=== PATIENT | female | born 1940 | race Caucasian/White ===

== ENCOUNTER 2017-11-09 18:05 | Inpatient (IN) | payer MEDICARE ==
[2017-11-09] MEDS ORDERED: Mag-Al Plus 1200 MG/1200 MG/120 MG/30 ML UDCUP ONE (18:26)
[2017-11-09] MEDS ORDERED: Lidocaine Viscous Sol 2% 15 ml UD Cup ONE (18:26)
[2017-11-09 18:50] LABS: #Basophils 0.1 thou/uL (0.0-0.2); #Eosinphils 0.4 thou/uL (0.0-0.7); #Lymphocytes 2.6 thou/uL (1.20-3.40); #Neutrophils 12.1 thou/uL (1.40-6.50); %Basophils 0.7 % (0.0-1.0); %Eosinophils 2.7 % (0.0-10.0); %Lymphocytes 15.8 % (21.0-51.0); %Monocytes 6.1 % (0.0-10.0); %Neutrophils 74.7 % (42.0-75.0); Hemoglobin 14.4 g/dL (12.0-16.0); Mean Corpuscular HGB CONC 34.6 g/dL (32.0-36.0); Mean Corpuscular Volume 89.6 fL (78.0-98.0); Mean Platelet Volume 6.7 fL (7.4-10.4); Platelet Count 271 thou/uL (130-400); RBC Distribution Width 11.3 % (11.5-14.5); Red Blood Cell (RBC) Count 4.64 mill/uL (4.20-5.40); White Blood Cell (WBC) Count 16.2 thou/uL (4.8-10.8)
[2017-11-09 19:08] LABS: ALT (SGPT) 15 U/L (8-55); AST (SGOT) 19 U/L (5-34); Albumin 4.4 g/dL (3.4-4.8); Alkaline Phosphatase 80 U/L (40-150); Anion Gap 12 mmol/L (10-20); BUN (Urea Nitrogen) 19 mg/dL (9.8-20.1); Bilirubin, Total 0.5 mg/dL (0.2-1.2); Calc. Creatinine Clearance 0 mL/min (70-130); Calcium 9.8 mg/dL (7.8-10.44); Carbon Dioxide 24 mmol/L (23-31); Chloride 108 mmol/L (98-107); Estimated GFR-MDRD 65; Globulin 2.7 g/dL (2.4-3.5); Glucose 131 mg/dL (83-110); Potassium 3.9 mmol/L (3.5-5.1); Protein, Total 7.1 g/dL (6.0-8.3); Sodium 140 mmol/L (136-145)
[2017-11-09 19:09] LABS: Troponin I Less than 0.010 ng/mL (< 0.028)
--- NOTE | 2017-11-09 19:22 | RAD ---
RADIOGRAPH CHEST 1 VIEW RADIOGRAPH ABDOMEN 2 VIEWS: 11/09/17 HISTORY: 77-year-old female with generalized abdominal pain, nausea, and emesis. FINDINGS: There are no air space densities or pulmonary edema. The lateral costophrenic angles are sharp. There is no cardiomegaly. There is no evidence of pneumothorax or pneumoperitoneum. There is no evidence of dilated small bowel loops, differential air/fluid levels, or organomegaly. IMPRESSION: 1) No acute cardiopulmonary findings. 2) No evidence of bowel obstruction. jn [] POS: JONATHAN
[2017-11-09] MEDS ORDERED: Morphine 4 MG/ML VIAL ONE ×2 (19:57→21:19)
[2017-11-09] MEDS ORDERED: Ondansetron HCl/PF 4 MG/2 ML Vial ONE (20:11)
[2017-11-09 20:18] LABS: Lipase 49412 U/L (8-78)
[2017-11-09] MEDS ORDERED: Morphine 4 MG/ML VIAL SLOW IVP PRN (22:44)
[2017-11-09] MEDS ORDERED: Lactated Ringer's 1,000 ML IV SCH (22:45)
[2017-11-09] MEDS ORDERED: Ondansetron ODT 4 MG TAB PO PRN (22:53)
[2017-11-09] MEDS ORDERED: Morphine 2 MG/ML SYRINGE SLOW IVP PRN (22:53)
[2017-11-09] MEDS: Lactated Ringer's 1,000 ML IV SCH (23:07)
[2017-11-09] MEDS: Ondansetron HCl/PF 4 MG/2 ML Vial IVP PRN (23:07)
[2017-11-09 23:46] VITALS: BMI 22.0
[2017-11-09] MEDS ORDERED: Acetaminophen 325 MG TAB PO PRN (23:49)
[2017-11-10] MEDS: Lactated Ringer's 1,000 ML IV SCH ×5 (04:21→23:36)
[2017-11-10 05:26] LABS: #Basophils 0.1 thou/uL (0.0-0.2); #Eosinphils 0.2 thou/uL (0.0-0.7); #Lymphocytes 2.4 thou/uL (1.20-3.40); #Monocytes 0.8 thou/uL (0.11-0.59); #Neutrophils 6.7 thou/uL (1.40-6.50); %Basophils 0.6 % (0.0-1.0); %Eosinophils 1.5 % (0.0-10.0); %Lymphocytes 23.4 % (21.0-51.0); %Monocytes 7.5 % (0.0-10.0); Anion Gap 10 mmol/L (10-20); BUN (Urea Nitrogen) 21 mg/dL (9.8-20.1); Calc. Creatinine Clearance 63 mL/min (70-130); Calcium 9.2 mg/dL (7.8-10.44); Carbon Dioxide 26 mmol/L (23-31); Chloride 108 mmol/L (98-107); Estimated GFR-MDRD 71; Glucose 109 mg/dL (83-110); Hemoglobin 12.9 g/dL (12.0-16.0); Mean Corpuscular HGB CONC 33.2 g/dL (32.0-36.0); Mean Corpuscular Hemoglobin 31.5 pg (27.0-31.0); Mean Corpuscular Volume 94.7 fL (78.0-98.0); Mean Platelet Volume 6.6 fL (7.4-10.4); Platelet Count 266 thou/uL (130-400); Potassium 4.5 mmol/L (3.5-5.1); Red Blood Cell (RBC) Count 4.11 mill/uL (4.20-5.40); Sodium 139 mmol/L (136-145)
--- NOTE | 2017-11-10 08:22 | HP ---
PRIMARY CARE PHYSICIAN: Chnete Ying CODE STATUS: FULL CODE. TIME OF EVALUATION: 2299. CHIEF COMPLAINT: Abdominal pain. HISTORY OF PRESENT ILLNESS: This is a 77-year-old female patient with past medical history of pancre atitis, also had a history of GERD, hypertension, who came to the hospital after having severe abdomi nal pain that was in the middle of her abdomen, occasionally radiating to the back, only relieved wit h opiate medications. She reported that she got the same symptoms when she had the previous episode of pancreatitis associated with nausea. Symptoms are severe. REVIEW OF SYSTEMS: Constitutional: No fever or chills, generalized weakness. Respiratory: No coug h, sputum production, shortness of breath. Cardiovascular: No chest pain, palpitation. Gastrointes tinal: Nausea, severe abdominal pain. No diarrhea. Central Nervous System: No dizziness, headache or feeling lightheaded. Genitourinary: No burning with urination. Extremities: No leg swelling. PAST MEDICAL HISTORY: As mentioned in the HPI. PAST SURGICAL HISTORY: Cholecystectomy, orthopedic surgery, arthroscopic surgery of left knee, tonsi llectomy. PSYCHIATRIC HISTORY: No previous psychiatric history. SOCIAL HISTORY: No alcohol, no drugs. The patient is a former cigarette smoker. KNOWN ALLERGIES: AUGMENTIN, BACTRIM. REPORTED MEDICATIONS: Ranitidine, aspirin, calcium, losartan, Multaq, vitamin B12. PHYSICAL EXAMINATION: VITAL SIGNS: On presentation, blood pressure 164/82, with heart rate 67, respiratory rate was 20, te mperature 97.7, pain 3-4/10 during examination, oxygen saturation 94% on room air. GENERAL APPEARANCE: Patient is alert and oriented, in no acute distress. HEENT: Eye, normal conjunctivae. Moist oral mucosa. Anicteric. NECK: No JVD. RESPIRATORY: Bilateral air entry. No rales, no wheezes. Symmetrical expansion. CARDIOVASCULAR: Normal rate, regular rhythm. No murmurs, no gallop. No edema. ABDOMEN: Soft, tender. MUSCULOSKELETAL: Baseline range of motion and strength, no tenderness. SKIN: Warm and intact. No pallor, no rash or redness. Peripheral pulses are present. Capillary re fill seems to be intact. NEUROLOGIC: Baseline sensory. No evidence of any new focal weakness. Baseline speech. Cranial ner ves seems to be intact. PSYCHIATRIC: The patient is in a good mood. No anxiety, oriented. Optimal judgment. IMAGING: EKG was reviewed. The patient has normal sinus rhythm. ST segments normal, nonspecific T- wave abnormalities. abdominal x-ray without acute abnormalities. LABORATORY DATA: Reviewed. White count 16.2 on presentation after initial treatment, hemoglob in 14.4, MCV 89, platelet count 271. Sodium 140, potassium 3.9, chloride 108, carbon dioxide 24, ani on gap 12, BUN 19, creatinine 0.8, GFR 65, glucose 131, calcium 9.8, total bilirubin 0.5, AST 19, ALT 15, alkaline phosphatase 280. Troponin is negative. Serum total protein 7.1, albumin 4.4, globulin 2.7. Albumin globulin ration is 1.6. Triglyceride 92 and lipase 49,000. ASSESSMENT AND PLAN: The patient was placed in the hospital for the following medical problems. 1. Acute pancreatitis. The patient has a lipase 49,000. She reported severe abdominal pain, hydr ated, opioid medications for optimal control, for now n.p.o., might be able to start clear liquids in the next 24-48 hours. 2. Severe abdominal pain needing opioids medications for optimal control, this places the patient at high risk of complications from treatment. 3. Deep venous thrombosis prophylaxis. 4. History of atrial fibrillation, rate is controlled.
[2017-11-10] MEDS: Famotidine 20 MG TAB PO SCH ×2 (08:31→20:09)
[2017-11-10] MEDS: Dronedarone HCl 400 MG TAB PO SCH ×2 (08:31→18:21)
[2017-11-10] MEDS: Folic Acid/Vit B Comp W-C PO SCH (08:31)
[2017-11-10] MEDS: Enoxaparin Sodium 40 MG/0.4 ML SYRINGE SC SCH (08:32)
[2017-11-10] MEDS: Calcium Carbonate + Vit D 1 TAB PO SCH ×2 (08:32→20:08)
[2017-11-10] MEDS: Losartan 25 MG TAB PO SCH (08:33)
[2017-11-10] MEDS: Ondansetron HCl/PF 4 MG/2 ML Vial IVP PRN ×2 (08:34→18:18)
[2017-11-10 08:43] LABS: Cardiac Risk 2.4 (Less than 4.5)
[2017-11-10] MEDS ORDERED: ISOVUE-370 76%-LOCM 1 ML ONE (10:44)
--- NOTE | 2017-11-10 11:21 | PDOC.PN ---
- Subjective Encounter Start Date: 11/10/17 Encounter Start Time: 11:19 Subjective: feels much better.abd pain resolving -: No N/V/D.no fever - Objective Resuscitation Status: Resuscitation Status FULL:Full Resuscitation MAR Reviewed: Yes Vital Signs & Weight: Vital Signs (12 hours) Temp Pulse Resp BP Pulse Ox 11/10/17 08:00 97.7 F 65 16 119/69 92 L 11/10/17 04:30 97.9 F 61 16 107/65 94 L 11/10/17 00:52 97.7 F 59 L 16 104/63 94 L Weight Weight 145 lb Result Diagrams: 11/10/17 04:16 11/10/17 04:16 Additional Labs: Laboratory Tests 11/09/17 11/10/17 18:43 04:16 Lipase 02871 H 5297 H Radiology Reviewed by me: Yes (CT A/P- pancreatitis w/o necrosis/abscess) Phys Exam - Physical Examination Constitutional: NAD HEENT: PERRLA, moist MMs, sclera anicteric, oral pharynx no lesions Neck: no nodes, no JVD, supple, full ROM Respiratory: no wheezing, no rales, no rhonchi, clear to auscultation bilateral Cardiovascular: RRR, no significant murmur Gastrointestinal: soft, no distention, positive bowel sounds Mild TTP epigastrium and upper abdomen Musculoskeletal: no edema, pulses present Neurological: non-focal, normal sensation, moves all 4 limbs Psychiatric: normal affect, A&O x 3 Skin: no rash, normal turgor, cap refill <2 seconds Dx/Plan (1) Acute pancreatitis Code(s): K85.90 - ACUTE PANCREATITIS WITHOUT NECROSIS OR INFECTION, UNSP Status: Acute Qualifiers: Pancreatitis type: biliary Comment: Elle retained CBD stone (2) Atrial fibrillation Code(s): I48.91 - UNSPECIFIED ATRIAL FIBRILLATION Status: Chronic Qualifiers: Atrial fibrillation type: paroxysmal Qualified Code(s): I48.0 - Paroxysmal atrial fibrillation Comment: Stable on Multaq.NSR (3) GERD (gastroesophageal reflux disease) Code(s): K21.9 - GASTRO-ESOPHAGEAL REFLUX DISEASE WITHOUT ESOPHAGITIS Status: Chronic Qualifiers: Esophagitis presence: esophagitis presence not specified Qualified Code(s) : K21.9 - Gastro-esophageal reflux disease without esophagitis - Plan plan discussed w/ family, out of bed/ambulate, DVT proph w/SCDs Cont IVF.NPO. clinically improved.; -: lipase trending down -: may need ERCP/MRCP-defer to GI -: Lipids checked and WNL. -: Clonoscopy last year and was NL except small polyp * . Review of Systems - Review of Systems Constitutional: negative: fever, chills, sweats, weakness, malaise, other ENT: negative: Ear Pain, Ear Discharge, Nose Pain, Nose Discharge, Nose Congestion, Mouth Pain, Mouth Swelling, Throat Pain, Throat Swelling, Other Respiratory: negative: Cough, Dry, Shortness of Breath, Hemoptysis, SOB with Excertion, Pleuritic Pain, Sputum, Wheezing Cardiovascular: negative: chest pain, palpitations, orthopnea, paroxysmal nocturnal dyspnea, edema, light headedness, other Gastrointestinal: Abdominal Pain. negative: Nausea, Vomiting, Diarrhea, Constipation, Melena, Hematochezia, Other Genitourinary: negative: Dysuria, Frequency, Incontinence, Hematuria, Retention , Other Musculoskeletal: negative: Neck Pain, Shoulder Pain, Arm Pain, Back Pain, Hand Pain, Leg Pain, Foot Pain, Other Skin: negative: Rash, Lesions, Celestino, Bruising, Other Neurological: negative: Weakness, Numbness, Incoordination, Change in Speech, Confusion, Seizures, Other - Medications/Allergies Allergies/Adverse Reactions: Allergies Allergy/AdvReac Type Severity Reaction Status Date / Time amoxicillin trihydrate Allergy Verified 11/09/17 23:25 [From Augmentin] potassium clavulanate Allergy Verified 11/09/17 23:25 [From Augmentin] sulfamethoxazole Allergy Verified 11/09/17 23:25 [From Bactrim] trimethoprim [From Bactrim] Allergy Verified 11/09/17 23:25 Medications: Current Medications Acetaminophen (Tylenol) 650 mg PO Q4H PRN PRN Reason: Headache/Fever or Pain Aspirin (Aspirin Chewable) 81 mg PO DAILY [facility] Last Admin: 11/10/17 08:31 Dose: 81 mg Calcium/Vitamin D (Caltrate 600 + Vit D) 1 tab PO BID [facility] Last Admin: 11/10/17 08:32 Dose: 1 tab Dronedarone (Multaq) 400 mg PO BID-[facility] Last Admin: 11/10/17 08:31 Dose: 400 mg Enoxaparin Sodium (Lovenox) 40 mg SC 0900 [facility] Last Admin: 11/10/17 08:32 Dose: 40 mg Famotidine (Pepcid) 40 mg PO BID [facility] Last Admin: 11/10/17 08:31 Dose: 40 mg Lactated Ringer's (Lactated Ringer's) 1,000 mls @ 200 mls/hr IV .Q5H [facility] Last Admin: 11/10/17 08:39 Dose: 1,000 mls Losartan Potassium (Cozaar) 50 mg PO DAILY [facility] Last Admin: 11/10/17 08:33 Dose: 50 mg Morphine Sulfate (Morphine) 2 mg SLOW IVP Q4H PRN PRN Reason: Pain Ondansetron HCl (Zofran) 4 mg IVP Q4H PRN PRN Reason: Nausea/Vomiting Last Admin: 11/10/17 08:34 Dose: 4 mg Ondansetron HCl (Zofran Odt) 4 mg PO Q4H PRN PRN Reason: Nausea/Vomiting Vitamin B Complex/Vit C/Folic Acid (Nephro-Katt Tablet) 1 tab PO DAILY [facility] Last Admin: 11/10/17 08:31 Dose: 1 tab
--- NOTE | 2017-11-10 11:23 | CT ---
PRE AND POST CONTRAST CT OF THE ABDOMEN AND PELVIS: History: Pancreatitis. Epigastric pain. Vomiting. Elevated enzymes. Technique: Pre and post contrast enhanced images of the abdomen and pelvis obtained. FINDINGS: Small bilateral pleural effusions seen. Some areas of atelectasis seen in the left lower lobe of the lung. Mitral anular calcifications seen. The liver and spleen are unremarkable. The gallbladder has been surgically removed. The pancreas shows no evidence of significant necrosis or pseudocyst. There is extensive fat strandin g surrounding the retroperitoneum enveloping the pancreas. Fluid is seen along the ascending colon as well as the left pericolic gutter. Fluid is also seen enveloping the retroperitoneal portion of the duodenum. No evidence of intrahepatic biliary dilatation is seen. The small bowel is unremarkable. A moderate amount of stool is seen in the ascending and transverse c olon. No evidence of intraabdominal abscess seen. Multilevel lumbar facet degenerative changes seen. IMPRESSION: Retroperitoneal fluid compatible with the patient's history of pancreatitis. No evidence of pancreati c pseudocyst or definite significant evidence of pancreatic necrosis or abscess seen. POS: JONATHAN
[2017-11-10 11:43] LABS: Cardiac Risk 2.3 (Less than 4.5)
--- NOTE | 2017-11-10 17:23 | CON ---
DATE OF CONSULTATION: 11/10/2017 GI CONSULT REASON FOR CONSULTATION: Pancreatitis. HISTORY OF PRESENT ILLNESS: Ms. Arredondo is a pleasant 77-year-old female, who came in with severe abdominal pain and had elevated lipase consistent with pancreatitis. She reports that she had one b out like this about a year and a half ago that was attributed to gallstones. That was at this hospit al and she had a cholecystectomy that was in 04/2016. At that time, she had a normal CAT scan of the abdomen and pelvis. She had gallstones on ultrasound. She had a laparoscopic cholecystectomy with IOC, which was negative. Interestingly, she had completely normal liver function test during that feli ut of pancreatitis. She states she had no problems in the interim. About a week ago, she was on Cip ro for UTI. She has taken that medicine in the past without problems. She was off it for about 3-4 days. When yesterday after going out to eat with her daughter, she had development of severe abdomin al pain. She came to the emergency room about 8:00 last night and she was concerned that the pain wa s very similar to her pancreatitis like pain, and sure enough, she was diagnosed with pancreatitis ag ain. She denies any alcohol use. In fact, she does not drink. She used to drink wine sometime with one of her neighbors, but that neighbor moved away that was not even a regular daily event. She kenya es no supplements or herbs, and was on a probiotic, which she took while she had her UTI. She denies heavy NSAID use. Presently, she was given 1 liter of IV fluids and then started on 100 mL an hour o f IV fluids in the emergency room, and then on the floor, she was placed on 200 an hour, which she re martha on. She notes she is urinating well. Her pain is gone. She pain medication since 4:00 a.m. She reports she had a CAT scan this morning, and presently, she has no nausea or vomiting. She has no appetite. She feels a little sore, but feels much better overall. PAST MEDICAL HISTORY: 1. Pancreatitis, last year. 2. Prior history of colon polyps with previous colonoscopies, last earlier this year. PAST SURGICAL HISTORY: Cholecystectomy with IOC was negative, orthopedic surgery, arthroscopic surge ry left knee, tonsillectomy, EGD and colonoscopy in the past. PSYCHIATRIC HISTORY: None. SOCIAL HISTORY: Does not smoke, drink, or use drugs. The patient used to smoke . ALLERGIES: Include AUGMENTIN AND BACTRIM. MEDICATIONS: At home, aspirin, calcium, losartan, Multaq, vitamin B12, and ranitidine. Presently, s he is on Tylenol, aspirin, calcium, Multaq, Lovenox, Pepcid, LR at 200 an hour, Cozaar, morphine p.r. n., Zofran p.r.n. PHYSICAL EXAMINATION: GENERAL: She is resting comfortably in bed. VITAL SIGNS: Pulse is 65, temperature 97, O2 sat 91-%94%, respirations 18, blood pressure 119/70. LUNGS: Clear, slight crackles in the left base, but no shortness of breath or wheezing. HEART: Regular rate and rhythm. ABDOMEN: Soft, nontender. There is no rebound or guarding. EXTREMITIES: No clubbing, cyanosis, or edema. LABORATORY STUDIES: White count is 10, it was 16 yesterday; hemoglobin 12.9, down from 14.4; platele t count is 266. Sodium 139, potassium 4.5, chloride 108, bicarb 26, BUN 21, creatinine is 0.79. On the , when she came in, her AST and ALT were 19 and 15, alkaline phosphatase was 80, bilirubin wa s 0.5. Triglycerides were 46, but 82 when she came in. Troponins were negative. Lipase was 49,412, now 5297. CAT scan of the abdomen and pelvis performed today with and without contrast, small bilat eral pleural effusions, mitral annular calcifications. Liver and spleen normal. Fat stranding in th e retroperitoneum involving the pancreas with some fluid along the ascending colon with left pericoli c gutter, this was also seen in the retroperitoneal portion of the duodenum. No intrahepatic ductal dilatation, moderate amount of stool. ASSESSMENT: This is a 77-year-old who has had a bout of pancreatitis, seems to be improving at this time. She has inflammatory changes around the pancreas with no evidence of pancreatic necrosis, etio logy of this is unclear. She had pancreatitis in 2017 and had a cholecystectomy at that time, althou gh interestingly her liver function tests were normal then as well. Typically, biliary pancreatitis will be associated with some type of AST, ALT, and alkaline phosphatase elevation, which she did not have last time nor this time. She is improving rapidly this admission. Differential diagnosis would include gallstone pancreatitis, which is a little bit less likely for the reasons noted above. Auto immune pancreatitis to be a consideration, but less likely. Pancreatitis due to some type of ampulla ry lesion would be a concern or drug-induced would be a possible cause. On my review of her CAT scan , I think she has got a dilated pancreatic duct and she is probably going to need an endoscopic ultra sound in the outpatient setting. RECOMMENDATIONS: Continue IV fluids 200 an hour. If she starts showing any signs of pulmonary edema , then I can back off to 150 or 100. We would repeat labs tomorrow and keep her n.p.o. Again, she i s needing some further outpatient evaluation for pancreas. We will follow along with you.
[2017-11-11] MEDS: Lactated Ringer's 1,000 ML IV SCH ×4 (04:37→22:06)
[2017-11-11 06:10] LABS: ALT (SGPT) 12 U/L (8-55); AST (SGOT) 18 U/L (5-34); Albumin 3.3 g/dL (3.4-4.8); Alkaline Phosphatase 57 U/L (40-150); Anion Gap 10 mmol/L (10-20); BUN (Urea Nitrogen) 9 mg/dL (9.8-20.1); Bilirubin, Total 1.3 mg/dL (0.2-1.2); Calc. Creatinine Clearance 69 mL/min (70-130); Calcium 8.8 mg/dL (7.8-10.44); Carbon Dioxide 25 mmol/L (23-31); Chloride 106 mmol/L (98-107); Estimated GFR-MDRD 79; Globulin 1.9 g/dL (2.4-3.5); Glucose 79 mg/dL (83-110); Lipase 637 U/L (8-78); Protein, Total 5.2 g/dL (6.0-8.3); Sodium 137 mmol/L (136-145)
[2017-11-11] MEDS: Dronedarone HCl 400 MG TAB PO SCH ×2 (08:24→16:36)
[2017-11-11] MEDS: Folic Acid/Vit B Comp W-C PO SCH (08:24)
[2017-11-11] MEDS: Calcium Carbonate + Vit D 1 TAB PO SCH ×2 (08:28→20:50)
[2017-11-11] MEDS: Losartan 25 MG TAB PO SCH (08:28)
[2017-11-11] MEDS: Famotidine 20 MG TAB PO SCH ×2 (08:28→20:50)
[2017-11-11] MEDS: Enoxaparin Sodium 40 MG/0.4 ML SYRINGE SC SCH (08:28)
[2017-11-11] MEDS: Ondansetron HCl/PF 4 MG/2 ML Vial IVP PRN (08:29)
[2017-11-11] MEDS ORDERED: Lactated Ringer's 1,000 ML IV SCH (09:06)
--- NOTE | 2017-11-11 12:47 | PDOC.PN ---
- Subjective Encounter Start Date: 11/11/17 Encounter Start Time: 12:45 Subjective: feels much better.abd pain improved -: no nausea/vomiting - Objective Resuscitation Status: Resuscitation Status FULL:Full Resuscitation MAR Reviewed: Yes Vital Signs & Weight: Vital Signs (12 hours) Temp Pulse Resp BP Pulse Ox 11/11/17 12:05 98.1 F 66 16 118/69 96 11/11/17 08:00 96 Weight Weight 145 lb I&O: 11/10/17 11/11/17 11/12/17 06:59 06:59 06:59 Intake Total 2600 Balance 2600 Result Diagrams: 11/10/17 04:16 11/11/17 04:16 Additional Labs: Laboratory Tests 11/09/17 11/10/17 11/11/17 18:43 04:16 04:16 Total Bilirubin 0.5 1.3 H Lipase 68246 H 5297 H 637 H Phys Exam - Physical Examination Constitutional: NAD HEENT: PERRLA, moist MMs, sclera anicteric, oral pharynx no lesions Neck: no nodes, no JVD, supple, full ROM Respiratory: no wheezing, no rales, no rhonchi, clear to auscultation bilateral Cardiovascular: RRR, no significant murmur, no rub Gastrointestinal: soft, non-tender, no distention, positive bowel sounds Musculoskeletal: no edema, pulses present Neurological: non-focal, normal sensation, moves all 4 limbs Psychiatric: normal affect, A&O x 3 Skin: no rash Dx/Plan (1) Acute pancreatitis Code(s): K85.90 - ACUTE PANCREATITIS WITHOUT NECROSIS OR INFECTION, UNSP Status: Acute Qualifiers: Pancreatitis type: biliary Comment: Likley retained CBD stone Vs [employer] .Lipid panel WNL. (2) Atrial fibrillation Code(s): I48.91 - UNSPECIFIED ATRIAL FIBRILLATION Status: Chronic Qualifiers: Atrial fibrillation type: paroxysmal Qualified Code(s): I48.0 - Paroxysmal atrial fibrillation Comment: Stable on Multaq.NSR (3) GERD (gastroesophageal reflux disease) Code(s): K21.9 - GASTRO-ESOPHAGEAL REFLUX DISEASE WITHOUT ESOPHAGITIS Status: Chronic Qualifiers: Esophagitis presence: esophagitis presence not specified Qualified Code(s) : K21.9 - Gastro-esophageal reflux disease without esophagitis - Plan DVT proph w/SCDs clinically better.IgG4 levels sent -: rediuce IVF. start CLD -: MRCP today.based on results,may need ERCP/EUS -: Lipase much improved. -: hemodynamically stable * . Review of Systems - Review of Systems Constitutional: negative: fever, chills, sweats, weakness, malaise, other ENT: negative: Ear Pain, Ear Discharge, Nose Pain, Nose Discharge, Nose Congestion, Mouth Pain, Mouth Swelling, Throat Pain, Throat Swelling, Other Respiratory: negative: Cough, Dry, Shortness of Breath, Hemoptysis, SOB with Excertion, Pleuritic Pain, Sputum, Wheezing Cardiovascular: negative: chest pain, palpitations, orthopnea, paroxysmal nocturnal dyspnea, edema, light headedness, other Gastrointestinal: negative: Nausea, Vomiting, Abdominal Pain, Diarrhea, Constipation, Melena, Hematochezia, Other Genitourinary: negative: Dysuria, Frequency, Incontinence, Hematuria, Retention , Other Musculoskeletal: negative: Neck Pain, Shoulder Pain, Arm Pain, Back Pain, Hand Pain, Leg Pain, Foot Pain, Other Skin: negative: Rash, Lesions, Celestino, Bruising, Other Neurological: negative: Weakness, Numbness, Incoordination, Change in Speech, Confusion, Seizures, Other - Medications/Allergies Allergies/Adverse Reactions: Allergies Allergy/AdvReac Type Severity Reaction Status Date / Time amoxicillin trihydrate Allergy Verified 11/09/17 23:25 [From Augmentin] potassium clavulanate Allergy Verified 11/09/17 23:25 [From Augmentin] sulfamethoxazole Allergy Verified 11/09/17 23:25 [From Bactrim] trimethoprim [From Bactrim] Allergy Verified 11/09/17 23:25 Medications: Current Medications Acetaminophen (Tylenol) 650 mg PO Q4H PRN PRN Reason: Headache/Fever or Pain Aspirin (Aspirin Chewable) 81 mg PO DAILY [facility] Last Admin: 11/11/17 08:28 Dose: 81 mg Calcium/Vitamin D (Caltrate 600 + Vit D) 1 tab PO BID [facility] Last Admin: 11/11/17 08:28 Dose: 1 tab Dronedarone (Multaq) 400 mg PO BID-[facility] Last Admin: 11/11/17 08:24 Dose: 400 mg Enoxaparin Sodium (Lovenox) 40 mg SC 899 [facility] Last Admin: 11/11/17 08:28 Dose: 40 mg Famotidine (Pepcid) 40 mg PO BID [facility] Last Admin: 11/11/17 08:28 Dose: 40 mg Lactated Ringer's (Lactated Ringer's) 1,000 mls @ 100 mls/hr IV .Q10H [facility] Losartan Potassium (Cozaar) 50 mg PO DAILY [facility] Last Admin: 11/11/17 08:28 Dose: 50 mg Morphine Sulfate (Morphine) 2 mg SLOW IVP Q4H PRN PRN Reason: Pain Ondansetron HCl (Zofran) 4 mg IVP Q4H PRN PRN Reason: Nausea/Vomiting Last Admin: 11/11/17 08:29 Dose: 4 mg Ondansetron HCl (Zofran Odt) 4 mg PO Q4H PRN PRN Reason: Nausea/Vomiting Sodium Chloride (Flush - Normal Saline) 10 ml IVF Q12HR [facility] Sodium Chloride (Flush - Normal Saline) 10 ml IVF PRN PRN PRN Reason: Saline Flush Vitamin B Complex/Vit C/Folic Acid (Nephro-Katt Tablet) 1 tab PO DAILY [facility] Last Admin: 11/11/17 08:24 Dose: 1 tab
--- NOTE | 2017-11-11 15:11 | PRG ---
DATE OF SERVICE: 11/11/2017 SUBJECTIVE: Ms. Arredondo feels much better. She states her lower abdomen still sore. She is void ing well. She is little bit hungry. She is tolerating sips of liquids with medicines and she inform s me that Dr. Bronson told her she can start on liquids now. She has no pain or nausea. MEDICATIONS: Multaq, Caltrate, Tylenol, Lovenox, lactated ringers at 200 has been dropped to 150, Co zaar, morphine, Zofran p.r.n., B complex. PHYSICAL EXAMINATION: VITAL SIGNS: Temperature is 97, pulse 71, blood pressure 110/64. LUNGS: Clear. HEART: Regular rate and rhythm without clicks, rubs or murmurs. ABDOMEN: Soft, nontender. There is no rebound or guarding. LABORATORY STUDIES: Sodium is 137, potassium 4, BUN and creatinine are 9 and 0.7, glucose 79, total bilirubin is 1.3, AST and ALT are 18 and 12, alkaline phosphatase 57. Protein 5.2, albumin 3.3, glob ulin 1.9, lipase is down from 5000 yesterday to 637 today. ASSESSMENT: Resolving pancreatitis, etiology is unclear. The way it came on abruptly and got better abruptly is very of biliary pancreatitis; however, her LFTs were normal. Interestingly, her L FTs are normal at the time of her previous episode of pancreatitis about a year and a half ago when s he had a laparoscopic cholecystectomy. With a bilirubin slightly elevated today, I think more valid. The differential diagnosis include a medication reaction, obviously some type of ampullary or pancreatic abnormality. The CAT scan just showed pancreatitis with no overt masses or lesions. RECOMMENDATIONS: 1. Advance to a clear liquid diet. If she tolerates that, she can go to full later today. 2. Repeat labs tomorrow. 3. MRCP tomorrow. 4. Decrease IV fluid to 100 mL an hour.
[2017-11-12] MEDS: Lactated Ringer's 1,000 ML IV SCH ×3 (02:41→20:02)
[2017-11-12 05:27] LABS: ALT (SGPT) 11 U/L (8-55); AST (SGOT) 19 U/L (5-34); Albumin 3.3 g/dL (3.4-4.8); Alkaline Phosphatase 56 U/L (40-150); Anion Gap 10 mmol/L (10-20); BUN (Urea Nitrogen) 7 mg/dL (9.8-20.1); Bilirubin, Total 1.1 mg/dL (0.2-1.2); Calc. Creatinine Clearance 65 mL/min (70-130); Calcium 9.1 mg/dL (7.8-10.44); Carbon Dioxide 26 mmol/L (23-31); Chloride 106 mmol/L (98-107); Estimated GFR-MDRD 74; Glucose 80 mg/dL (83-110); Lipase 102 U/L (8-78); Potassium 3.8 mmol/L (3.5-5.1); Protein, Total 5.3 g/dL (6.0-8.3); Sodium 138 mmol/L (136-145)
[2017-11-12] MEDS: Dronedarone HCl 400 MG TAB PO SCH ×2 (08:58→17:34)
[2017-11-12] MEDS: Losartan 25 MG TAB PO SCH (08:59)
[2017-11-12] MEDS: Famotidine 20 MG TAB PO SCH ×2 (08:59→20:01)
[2017-11-12] MEDS: Calcium Carbonate + Vit D 1 TAB PO SCH ×2 (08:59→20:01)
[2017-11-12] MEDS: Folic Acid/Vit B Comp W-C PO SCH (08:59)
[2017-11-12] MEDS: Enoxaparin Sodium 40 MG/0.4 ML SYRINGE SC SCH (09:02)
--- NOTE | 2017-11-12 10:35 | MRI ---
MRI OF THE ABDOMEN WITHOUT IV CONTRAST: INDICATION: History of pancreatitis, epigastric abdominal pain, and elevated enzymes. COMPARISON: CT of the abdomen and pelvis dated 11/10/17. TECHNIQUE: Multiplanar, multisequence MR images were obtained of the abdomen utilizing an MRP protocol. FINDINGS: There is some dilatation of the common bile duct measuring up to 1.4 cm, likely related to patient's post cholecystectomy state. There is mild intrahepatic ductal dilatation. There is mild peripancreatic edema consistent with the patient's history of pancreatitis. No definit e drainable fluid collection is evident. No definite intraluminal filling defect is grossly evident within the common bile duct. There are small bilateral pleural effusions and suspected bibasilar atelectasis. There is mild thoracolumbar scoliosis. There is a small cyst within the right mid kidney. IMPRESSION: 1. Findings most consistent with acute noncomplicated pancreatitis. 2. No definite intraluminal focal filling defect evident within the common bile duct. 3. Dilatation of the common bile duct and mild intrahepatic biliary ductal dilatation is likely rela christina to the patient's post-cholecystectomy state. 4. Small right renal cyst. 5. Bilateral pleural effusions and suspected bibasilar atelectasis. POS: [facility]
--- NOTE | 2017-11-12 13:20 | PDOC.PN ---
- Subjective Encounter Start Date: 11/12/17 Encounter Start Time: 13:20 Subjective: feels better.no more abd pain.able to eat full liquids w/o nausea/ vomiting - Objective Resuscitation Status: Resuscitation Status FULL:Full Resuscitation MAR Reviewed: Yes Vital Signs & Weight: Vital Signs (12 hours) Temp Pulse Resp BP Pulse Ox 11/12/17 11:14 98.1 F 71 18 143/81 H 92 L 11/12/17 07:05 98.1 F 72 17 142/80 H 92 L Weight Weight 145 lb I&O: 11/11/17 11/12/17 11/13/17 06:59 06:59 06:59 Intake Total 2600 Balance 2600 Result Diagrams: 11/10/17 04:16 11/12/17 04:07 Additional Labs: Laboratory Tests 11/09/17 11/10/17 11/11/17 18:43 04:16 04:16 Lipase 17188 H 5297 H 637 H 11/12/17 04:07 Lipase 102 H Radiology Reviewed by me: Yes (MRI-Uncomplicated pancreatitis) Phys Exam - Physical Examination Constitutional: NAD HEENT: PERRLA, moist MMs, sclera anicteric, oral pharynx no lesions Neck: no nodes, no JVD, supple, full ROM Respiratory: no wheezing, no rales, no rhonchi, clear to auscultation bilateral Cardiovascular: RRR, no significant murmur, no rub Gastrointestinal: soft, non-tender, no distention, positive bowel sounds Musculoskeletal: no edema, pulses present Neurological: non-focal, normal sensation, moves all 4 limbs Psychiatric: normal affect, A&O x 3 Skin: no rash Dx/Plan (1) Acute pancreatitis Code(s): K85.90 - ACUTE PANCREATITIS WITHOUT NECROSIS OR INFECTION, UNSP Status: Acute Qualifiers: Pancreatitis type: biliary Comment: Likley retained CBD stone Vs Autoimmune .Lipid panel WNL. (2) Atrial fibrillation Code(s): I48.91 - UNSPECIFIED ATRIAL FIBRILLATION Status: Chronic Qualifiers: Atrial fibrillation type: paroxysmal Qualified Code(s): I48.0 - Paroxysmal atrial fibrillation Comment: Stable on Multaq.NSR (3) GERD (gastroesophageal reflux disease) Code(s): K21.9 - GASTRO-ESOPHAGEAL REFLUX DISEASE WITHOUT ESOPHAGITIS Status: Chronic Qualifiers: Esophagitis presence: esophagitis presence not specified Qualified Code(s) : K21.9 - Gastro-esophageal reflux disease without esophagitis - Plan DVT proph w/SCDs cont full liquid. no masses/obstruction on MRI -: likley able to advance diet.will defer to GI -: lipase almost back down to normal * . Review of Systems - Review of Systems Constitutional: negative: fever, chills, sweats, weakness, malaise, other ENT: negative: Ear Pain, Ear Discharge, Nose Pain, Nose Discharge, Nose Congestion, Mouth Pain, Mouth Swelling, Throat Pain, Throat Swelling, Other Respiratory: negative: Cough, Dry, Shortness of Breath, Hemoptysis, SOB with Excertion, Pleuritic Pain, Sputum, Wheezing Cardiovascular: negative: chest pain, palpitations, orthopnea, paroxysmal nocturnal dyspnea, edema, light headedness, other Gastrointestinal: negative: Nausea, Vomiting, Abdominal Pain, Diarrhea, Constipation, Melena, Hematochezia, Other Genitourinary: negative: Dysuria, Frequency, Incontinence, Hematuria, Retention , Other Musculoskeletal: negative: Neck Pain, Shoulder Pain, Arm Pain, Back Pain, Hand Pain, Leg Pain, Foot Pain, Other Neurological: negative: Weakness, Numbness, Incoordination, Change in Speech, Confusion, Seizures, Other - Medications/Allergies Allergies/Adverse Reactions: Allergies Allergy/AdvReac Type Severity Reaction Status Date / Time amoxicillin trihydrate Allergy Verified 11/09/17 23:25 [From Augmentin] potassium clavulanate Allergy Verified 11/09/17 23:25 [From Augmentin] sulfamethoxazole Allergy Verified 11/09/17 23:25 [From Bactrim] trimethoprim [From Bactrim] Allergy Verified 11/09/17 23:25 Medications: Current Medications Acetaminophen (Tylenol) 650 mg PO Q4H PRN PRN Reason: Headache/Fever or Pain Aspirin (Aspirin Chewable) 81 mg PO DAILY [facility] Last Admin: 11/12/17 08:59 Dose: 81 mg Calcium/Vitamin D (Caltrate 600 + Vit D) 1 tab PO BID [facility] Last Admin: 11/12/17 08:59 Dose: 1 tab Dronedarone (Multaq) 400 mg PO BID[facility] Last Admin: 11/12/17 08:58 Dose: 400 mg Enoxaparin Sodium (Lovenox) 40 mg SC 0900 [facility] Last Admin: 11/12/17 09:02 Dose: 40 mg Famotidine (Pepcid) 40 mg PO BID [facility] Last Admin: 11/12/17 08:59 Dose: 40 mg Lactated Ringer's (Lactated Ringer's) 1,000 mls @ 100 mls/hr IV .Q10H [facility] Last Admin: 11/12/17 11:43 Dose: 1,000 mls Losartan Potassium (Cozaar) 50 mg PO DAILY [facility] Last Admin: 11/12/17 08:59 Dose: 50 mg Morphine Sulfate (Morphine) 2 mg SLOW IVP Q4H PRN PRN Reason: Pain Ondansetron HCl (Zofran) 4 mg IVP Q4H PRN PRN Reason: Nausea/Vomiting Last Admin: 11/11/17 08:29 Dose: 4 mg Ondansetron HCl (Zofran Odt) 4 mg PO Q4H PRN PRN Reason: Nausea/Vomiting Sodium Chloride (Flush - Normal Saline) 10 ml IVF Q12HR [facility] Last Admin: 11/12/17 08:59 Dose: 10 ml Sodium Chloride (Flush - Normal Saline) 10 ml IVF PRN PRN PRN Reason: Saline Flush Vitamin B Complex/Vit C/Folic Acid (Nephro-Katt Tablet) 1 tab PO DAILY [facility] Last Admin: 11/12/17 08:59 Dose: 1 tab
--- NOTE | 2017-11-13 00:04 | PRG ---
DATE OF SERVICE: 11/12/2017 SUBJECTIVE: Ms. Arredondo is pain free and tolerating a low-fat diet. OBJECTIVE: VITAL SIGNS: Temperature is 97.8, pulse 67, blood pressure 145/76. GENERAL: She is in no acute distress, alert and oriented x3. LUNGS: Clear to auscultation bilaterally. HEART: Regular rate and rhythm without murmur. ABDOMEN: Soft, nontender, nondistended. Bowel sounds are present. EXTREMITIES: No lower extremity edema. LABORATORY AND DIAGNOSTIC DATA: White blood cell count 10.0, hemoglobin 12.9, platelets 266,000. Li pase is down to 102, albumin 3.3, creatinine 0.76, bilirubin 1.1, AST 19, ALT 11, alkaline phosphatas e 56. She had an MRCP today, which showed no filling defects in the common bile duct. The bile duct was dilated; however, up to 1.4 cm. IMPRESSION: 1. Acute recurrent idiopathic pancreatitis. Given the biliary dilation to 1.4 cm and slightly eleva christina bilirubin on presentation, still gallstone pancreatitis is a possibility. She might have passed a stone and her pancreatitis is now pretty much resolved. 2. Neoplastic process still has to be ruled out in a 77-year-old with acute pancreatitis. No mass w as seen by CT or MRI. RECOMMENDATIONS: 1. She is tolerating a low-fat diet. 2. Follow up with Dr. Brown in GI clinic. Next step will be referral for endoscopic ultrasound. __ ___ evaluate for any choledocholithiasis, not identified by the MRCP and also evaluate for pancreatic head tumor that also could cause pancreatitis. 3. I will sign off. Please call if GI can be of assistance, it is anticipated that she will dischar ge home tomorrow.
[2017-11-13 07:02] VITALS: BP 157/76; TEMP 97.5
[2017-11-13] MEDS: Dronedarone HCl 400 MG TAB PO SCH (08:01)
[2017-11-13] MEDS: Famotidine 20 MG TAB PO SCH (08:01)
[2017-11-13] MEDS: Enoxaparin Sodium 40 MG/0.4 ML SYRINGE SC SCH (08:01)
[2017-11-13] MEDS: Folic Acid/Vit B Comp W-C PO SCH (08:01)
[2017-11-13] MEDS: Losartan 25 MG TAB PO SCH (08:01)
[2017-11-13] MEDS: Calcium Carbonate + Vit D 1 TAB PO SCH (08:01)
[2017-11-13] MEDS: Lactated Ringer's 1,000 ML IV SCH (11:27)
--- NOTE | 2017-11-13 13:37 | DIS ---
DATE OF ADMISSION: 11/09/2017 DATE OF DISCHARGE: 11/13/2017 CONDITION AT THE TIME OF DISCHARGE: Stable and improved. DISCHARGE DISPOSITION: Home. PRIMARY CARE PHYSICIAN: Dr. Valdez PRIMARY SAFETY AND HEALTH CONSULTANT: Dr. Anai Brown DISCHARGE DIAGNOSES: 1. Acute pancreatitis, etiology unclear at this time. 2. Recurrent idiopathic. SECONDARY DISCHARGE DIAGNOSES: 1. History of hypertension, stable. 2. History of atrial fibrillation, normal sinus rhythm on Multaq. 3. Gastroesophageal reflux disease. DISCHARGE MEDICATIONS: Remain the same as admission medication as follows; Multaq 400 mg p.o. b.i.d. , aspirin 81 mg daily, calcium with vitamin D 1 tablet p.o. b.i.d., Pepcid 40 mg p.o. b.i.d., Nephro- Katt 1 tablet daily and Cozaar 50 mg daily. IN-HOUSE CONSULTATIONS: Gastroenterology, Dr. Kaur and Dr. London. PROCEDURES DONE IN THE HOSPITAL: 1. Acute abdominal series on presentation to the ER, which did not show any evidence of bowel obstru ction. 2. CT scan of the abdomen and pelvis on 11/10/2017 which showed acute pancreatitis without evidence of pseudocyst or necrosis or abscess or any masses. No intrahepatic biliary ductal dilatation. 3. MRCP which once again showed findings consistent with acute noncomplicated pancreatitis without d efinitive intraluminal focal filling defect within the common bile duct, dilatation of the CBD and mi ld intrahepatic ductal dilatation was seen which was likely related to post-cholecystectomy state. HOSPITAL COURSE: Ms. Arredondo is a very pleasant 77-year-old female with history of one attack of pancreatitis in the past, GERD and hypertension, who presented to the emergency room with complaints of severe abdominal pain in the middle of her abdomen radiating to back. Upon presentation, she was found to have lipase elevated to almost 50,000. White count was 16.2, anion gap of 12, BUN 19, creat inine 0.8. She was otherwise hemodynamically stable. KUB was done in the ER it was negative. She w as admitted with a presumptive diagnosis of acute pancreatitis and was started on IV fluids and kept n.p.o. and GI was consulted. Please see admission history and physical for further details. HOSPITAL COURSE: A CT scan of the abdomen and pelvis was done to check for any specific causes of th e pancreatitis and to confirm the diagnosis. It did confirm the diagnosis, but the cause was not kno wn. She was seen by Dr. Kaur from Gastroenterology and IgG4 levels were checked to rule out autoim mune pancreatitis and lipid panel was also checked. Both of these were unremarkable. I do have the results of the IgG, but not the IgG4 subtype at this time. The patient did clinically well with IV fluids and n.p.o. status and was slowly advanced with her t and tolerated it very well. Lipase was trended and it went from 40,000 to 69 this morning. She wa s seen and cleared by Gastroenterology for discharge with outpatient followup. She underwent MRCP, w hich did not show any overt tumors or masses, but she would require endoscopic ultrasound to rule out any peripancreatic duct anomalies or any small masses to rule out carcinoma. She will follow up diego h her joint supervisor, Dr. Anai Brown, in the outpatient setting. This morning she was seen and examined and is tolerating a regular low fat diet and has no abdominal pain, nausea or vomiting. PHYSICAL EXAMINATION: VITAL SIGNS: This morning; temperature 97.5, pulse of 67, respirations 20, saturating 94% on room ai r, blood pressure 157/76. GENERAL: In no acute distress. CHEST: Clear to auscultation bilaterally. CARDIOVASCULAR: Rate and rhythm is regular. ABDOMEN: Soft, nontender, nondistended, positive bowel sounds. Discharge plan was discussed with the patient who verbalized understanding. She will also follow up with her primary care physician in 1-2 weeks. Medications were reconciled. Total time spent was 32 minutes.
== END 2017-11-13 13:13 | disposition home or self-care (01) | DRG 440 ==
LOC: SCSER 18:05 → T4-A 19:58
PROVIDERS: ADMIT Hospitalist; ATTEND Hospitalist
DX: K85.00 Idiopathic acute pancreatitis without necrosis or infection (principal); I48.0 Paroxysmal atrial fibrillation; K21.9 Gastro-esophageal reflux disease without esophagitis; K80.50 Calculus of bile duct without cholangitis or cholecystitis without obstruction; I10 Essential (primary) hypertension; Z90.49 Acquired absence of other specified parts of digestive tract; Z87.891 Personal history of nicotine dependence
CPT/HCPCS: 36415; 74022; 74178; 74181; 80048; 80053; 80061; 82553; 82787; 83690; 84478; 84484; 85025; 93005; 96361; 96374; 96375; 96376; A4216; J1650; J2270; J2405

== ENCOUNTER 2018-01-09 06:09 | Inpatient (IN) | payer MEDICARE ==
[2018-01-09] MEDS ORDERED: Morphine 4 MG/ML VIAL ONE ×2 (06:36→17:17)
[2018-01-09 06:46] LABS: Hemoglobin 15.4 g/dL (12.0-16.0); Mean Corpuscular HGB CONC 34.5 g/dL (32.0-36.0); Mean Corpuscular Hemoglobin 31.7 pg (27.0-31.0); Mean Platelet Volume 6.9 fL (7.4-10.4); Platelet Count 280 thou/uL (130-400); RBC Distribution Width 11.8 % (11.5-14.5); Red Blood Cell (RBC) Count 4.85 mill/uL (4.20-5.40); White Blood Cell (WBC) Count 15.4 thou/uL (4.8-10.8)
[2018-01-09 07:05] LABS: ALT (SGPT) 12 U/L (8-55); AST (SGOT) 18 U/L (5-34); Albumin 4.4 g/dL (3.4-4.8); Alkaline Phosphatase 71 U/L (40-150); Anion Gap 14 mmol/L (10-20); BUN (Urea Nitrogen) 13 mg/dL (9.8-20.1); Bilirubin, Total 1.7 mg/dL (0.2-1.2); Calc. Creatinine Clearance 0 mL/min (70-130); Calcium 9.5 mg/dL (7.8-10.44); Carbon Dioxide 21 mmol/L (23-31); Chloride 100 mmol/L (98-107); Estimated GFR-MDRD 62; Globulin 2.8 g/dL (2.4-3.5); Glucose 138 mg/dL (83-110); Lipase 47 U/L (8-78); Potassium 3.9 mmol/L (3.5-5.1); Protein, Total 7.2 g/dL (6.0-8.3); Sodium 131 mmol/L (136-145)
[2018-01-09 07:27] LABS: Band 12 % (5-11); Lymphocytes 8 % (21-51); MDiff Complete? YES; Monocytes 4 % (0-10); Neutrophil 73 % (42-75); RBC Morphology Normal; Reactive Lymphocytes 3 % (0-10)
[2018-01-09] MEDS ORDERED: MEROPENEM 1 GM/50 ML 1 GM in Premix Bag 1 BAG IVPB ONE (09:15)
--- NOTE | 2018-01-09 09:45 | CT ---
CT ABDOMEN AND PELVIS WITH CONTRAST: Technique: Multiple contiguous axial images were obtained through the abdomen and pelvis with IV enha ncement. Oral contrast was given. Indications: Abdominal pain. ERCP procedure yesterday. History of pancreatitis. Comparison: CT abdomen and pelvis, 11-10-17. That exam revealed inflammatory change and fluid surround ing the head of the pancreas and into the right retroperitoneum. FINDINGS: Linear stranding in both lung bases with linear atelectasis in the left lung base. Possible tiny effu sions. Images of the liver reveals pneumobilia consistent with the history of ERCP procedure. However, there is a large amount of free intraperitoneal air in the upper abdomen. Free air is seen s urrounding the second portion of the duodenum and irradiating posterior to the pancreas and into Morr nate's pouch. Duodenal perforation should be excluded. Pancreas is otherwise unremarkable with very mild peripancreatic fluid and edema. Fluid and stranding is seen into the right retroperitoneum, slightly more prominent than on the prior study. Spleen is unremarkable. Adrenal glands and kidneys unremarkable and unchanged with small renal cysts again noted. Small bowel loops are normal caliber. Images through the pelvis reveals a pessary type device in the vaginal vault. Aorta is normal caliber. IMPRESSION: 1. Free intraperitoneal air in the upper abdomen with prominent air surrounding the second porti on of the duodenum, pancreas, and into Chamorro's pouch on the right. Fluid and stranding in the righ t retroperitoneum and mild peripancreatic fluid. 2. Findings discussed with Dr. Javier. POS: [facility]
[2018-01-09 11:32] VITALS: BMI 21.1
[2018-01-09] MEDS ORDERED: Ondansetron PF 4 MG/2 ML Vial IVP PRN (14:00)
[2018-01-09] MEDS: Sodium Chloride 0.9% 1,000 ML IV SCH ×2 (15:29→23:46)
[2018-01-09] MEDS ORDERED: ISOVUE-370 76%-LOCM 1 ML ONE (16:44)
[2018-01-09] MEDS ORDERED: Iopamidol 370 76% 50 ML VIAL FS ONE (16:44)
[2018-01-09] MEDS ORDERED: Morphine 2 MG/ML SYRINGE SLOW IVP PRN ×3 (17:06→17:11)
[2018-01-09] MEDS: Morphine 2 MG/ML SYRINGE SLOW IVP PRN ×2 (17:26→23:45)
[2018-01-09] MEDS: MEROPENEM 1 GM/50 ML 1 GM in Premix Bag 1 BAG IVPB SCH (17:27)
[2018-01-09] MEDS: Famotidine/PF 20 mg/2ml Vial SLOW IVP SCH (20:16)
[2018-01-09] MEDS: Lactinex Tablet PO SCH (20:17)
[2018-01-09] MEDS ORDERED: MEROPENEM 1 GM/50 ML 1 GM in Premix Bag 1 BAG IVPB SCH (22:00)
[2018-01-10] MEDS: MEROPENEM 1 GM/50 ML 1 GM in Premix Bag 1 BAG IVPB SCH ×3 (01:37→17:10)
--- NOTE | 2018-01-10 02:37 | CON ---
DATE OF CONSULTATION: 01/09/2018 HISTORY OF PRESENT ILLNESS: Ms. Arredondo is a 77-year-old woman with history of recurrent pancreatitis. The patient has a remote history of previous cholecystectomy. She was referred to [place] and underwent endoscopic ultrasound followed by ERCP by an interventional purchasing agent yesterday. The procedure apparently was without incident. The patient was, however awoken at 0130 hours this morning with severe abdominal pain, which was mostly in the right lower quadrant and left upper quadrant. Pain was described as a dull ache, which was constant. The patient denied any nausea, vomiting, fevers, or chills. She denies any change in her bowel habits. She has been in the emergency department for few hours prior to my evaluation. At the time of my evaluation, the patient now rates the pain at 4/10. She does not have any pain when she is lying still; however, the pain is 4/10 with provocation. She currently continue to deny any nausea, dyspnea, or syncope. PAST MEDICAL HISTORY: Significant for recurrent pancreatitis, gastroesophageal reflux disease, essential hypertension, chronic atrial fibrillation. PAST SURGICAL HISTORY: Significant for cholecystectomy in 2017, arthroscopic left knee surgery, childhood tonsillectomy, and then adenoidectomy. SOCIAL HISTORY: The patient is , lives at home with her . She has a remote tobacco history and has not smoked since 1967. She denies any ethanol or illicit drug abuse. MEDICATIONS: Prehospitalization medications include, 1. Ranitidine 300 mg p.o. b.i.d. 2. Losartan 50 mg p.o. daily. 3. Multaq 400 mg p.o. b.i.d. 4. Lactobacillus combination 1 capsule p.o. daily. 5. Vitamin B complex p.o. daily. ALLERGIES: PENICILLIN. FAMILY HISTORY: Noncontributory for this patient's age. REVIEW OF SYSTEMS: A 10-point review of systems is essentially unremarkable except for as stated in the past medical history and chief complaint. PHYSICAL EXAMINATION: GENERAL: This revealed a 77-year-old normally developed woman, who is otherwise coherent, interactive, and appears stated age. The patient is alert and oriented x3. She appears to be in no acute distress at the time of my evaluation. VITAL SIGNS: Currently includes blood pressure 118/62, pulse 82, respiratory rate is 18, temperature is 98.5 degrees Fahrenheit, oxygen saturation 94% on room air. HEENT: Normocephalic and atraumatic. HEART: Reveals regular rate and rhythm. No murmurs or gallops auscultated. LUNGS: Clear to auscultation bilaterally. Breathing regular and nonlabored. ABDOMEN: Soft, nondistended. She has right lower quadrant tenderness to palpation. She has no gross rebound tenderness present. Liver and spleen are not palpable below costal margin. Bowel sounds in all 4 quadrants appeared normoactive. NEUROLOGIC: Reveals no focal deficits. LABORATORY FINDINGS: Today includes a CBC with 15,400 white blood cells, hemoglobin and hematocrit of 15.4 and 44.6 respectively, platelet count is 280,000. Differential counts as follows; 73 neutrophils, 12 bands, 8 lymphocytes, and 4 monocytes. Metabolic profile; sodium 131, potassium is 3.9, chloride is 100, bicarbonate is 21, BUN 13, creatinine 0.89, glucose 138. Lactic acid is 2.0. Total bilirubin 1.7. AST and ALT are normal at 18 and 12 respectively. Alkaline phosphatase is also normal at 71. Serum lipase is normal at 47. I personally reviewed the CT scan of the abdomen and pelvis, which is remarkable for peripancreatic fat stranding. Of significance, however, is large amount of free intraperitoneal air in the upper abdomen, especially surrounding the second portion of the duodenum. There is also stranding of the fat in the Morison pouch. I did not see any oral contrast extravasation. IMPRESSION: 1. Post endoscopic retrograde cholangiopancreatography pneumoperitoneum and free fluid adjacent to the second portion of the duodenum, likely secondary to a perforated viscus. 2. There is localized peritonitis, but no clinical evidence of generalized peritonitis at this time. 3. I suspect that this perforation is contained. RECOMMENDATION: Continue with broad-spectrum antibiotic therapy, maintaining the patient on bowel rest with serial physical examination. There is no acute surgical indication for this patient at this time. Surgical intervention will be entertained for failure with conservative management. I discussed the above with the patient and her at bedside. I also contacted Dr. Davila, who is the interventional purchasing agent who performed the procedure yesterday. The procedure was reportedly uneventful and the immediate postoperative course was also unremarkable. He agrees with this recommendation. Thank you again Dr. Javier for allowing me the opportunity to participate in the care of this patient. Job ID: [id number] [facility]
[2018-01-10 05:44] LABS: #Monocytes 0.5 thou/uL (0.11-0.59); #Neutrophils 9.4 thou/uL (1.40-6.50); %Basophils 0.2 % (0.0-1.0); %Eosinophils 0.1 % (0.0-10.0); %Monocytes 4.8 % (0.0-10.0); %Neutrophils 85.9 % (42.0-75.0); Hemoglobin 12.7 g/dL (12.0-16.0); Mean Corpuscular HGB CONC 34.2 g/dL (32.0-36.0); Mean Corpuscular Hemoglobin 31.8 pg (27.0-31.0); Mean Corpuscular Volume 93.2 fL (78.0-98.0); Mean Platelet Volume 7.3 fL (7.4-10.4); Platelet Count 205 thou/uL (130-400); Red Blood Cell (RBC) Count 4.01 mill/uL (4.20-5.40)
[2018-01-10 05:57] LABS: Anion Gap 9 mmol/L (10-20); BUN (Urea Nitrogen) 16 mg/dL (9.8-20.1); Calc. Creatinine Clearance 61 mL/min (70-130); Carbon Dioxide 22 mmol/L (23-31); Chloride 106 mmol/L (98-107); Estimated GFR-MDRD 72; Glucose 85 mg/dL (83-110); Potassium 3.8 mmol/L (3.5-5.1); Sodium 133 mmol/L (136-145)
[2018-01-10] MEDS: Morphine 2 MG/ML SYRINGE SLOW IVP PRN ×3 (08:31→23:53)
[2018-01-10] MEDS: Famotidine/PF 20 mg/2ml Vial SLOW IVP SCH ×2 (08:31→20:12)
[2018-01-10] MEDS: Lactinex Tablet PO SCH ×2 (08:32→20:18)
[2018-01-10] MEDS: Sodium Chloride 0.9% 1,000 ML IV SCH ×2 (10:26→20:12)
--- NOTE | 2018-01-10 12:10 | PRG ---
DATE OF SERVICE: 01/10/2018 SUBJECTIVE: This is a 77-year-old female, who is status post ERCP 2 days, consulted by our service with suspected microperforations after ERCP. The patient feels well this morning and reports improved abdominal pain. Denies fevers or chills. Has no other complaints at this time. OBJECTIVE: VITAL SIGNS: Blood pressure 99/61, pulse 87, respirations 18, O2 saturation 93% on room air, and temperature 98.1. GENERAL: No acute distress. Alert and oriented. HEENT: Normocephalic and atraumatic. Moist mucous membranes. EOMI. HEART: Regular rate and rhythm. No murmurs. LUNGS: Clear to auscultation bilaterally. Equal chest rise. ABDOMEN: Soft. Nondistended. Mild epigastric abdominal pain, slightly improved from yesterday. NEUROLOGIC: No focal neurological deficits. LABORATORY FINDINGS: White blood cell count 11, hemoglobin 12.7, hematocrit 37.3, and platelet count 205. Sodium 133, potassium 3.8, BUN 16, creatinine 0.78, and glucose 85. IMPRESSION: 1. Status post endoscopic retrograde cholangiopancreatography with free fluid adjacent to the second portion of the duodenum likely secondary to perforated viscus. 2. No evidence of generalized peritonitis at this time. 3. Suspected perforation is contained. RECOMMENDATION: Continue broad-spectrum antibiotic therapy. Maintain bowel arrest. Continue serial physical examinations. No indication for surgery at this time, but we will consider if failure of conservative management. This patient was seen and evaluated by Dr. Young on morning rounds. The patient verbalized understanding and was in agreement with plan. Job ID: [id number]
[2018-01-11] MEDS: MEROPENEM 1 GM/50 ML 1 GM in Premix Bag 1 BAG IVPB SCH ×3 (02:10→17:56)
[2018-01-11] MEDS: Morphine 2 MG/ML SYRINGE SLOW IVP PRN ×4 (05:04→20:50)
[2018-01-11] MEDS: Sodium Chloride 0.9% 1,000 ML IV SCH ×2 (06:05→16:07)
[2018-01-11] MEDS: Famotidine/PF 20 mg/2ml Vial SLOW IVP SCH ×2 (08:40→20:53)
[2018-01-11] MEDS: Lactinex Tablet PO SCH ×3 (08:41→20:52)
--- NOTE | 2018-01-11 15:59 | PDOC.PN ---
- Subjective Encounter Start Date: 01/11/18 Encounter Start Time: 15:57 Subjective: Abd pain better - Objective Resuscitation Status - Order Detail: 01/09/18 13:55 Resuscitation Status Routine Resuscitation Status: FULL: Full Resuscitation MAR Reviewed: Yes Vital Signs & Weight: Vital Signs (12 hours) Temp Pulse Resp BP Pulse Ox 01/11/18 11:15 98.2 F 86 18 127/77 94 L 01/11/18 07:50 98.0 F 81 18 122/69 93 L 01/11/18 04:27 98.2 F 78 16 109/68 94 L Weight Weight 138 lb 14.259 oz Result Diagrams: 01/10/18 04:56 01/10/18 04:56 Phys Exam - Physical Examination HEENT: PERRLA, moist MMs, sclera anicteric, TM's clear, oral pharynx no lesions , 2+ tonsils Neck: no nodes, no JVD, supple, full ROM Respiratory: no wheezing, no rales, no rhonchi Cardiovascular: RRR, no significant murmur, no rub generalized tenderness Musculoskeletal: no edema, pulses present Neurological: non-focal, normal sensation, moves all 4 limbs Dx/Plan (1) Perforation bowel Code(s): K63.1 - PERFORATION OF INTESTINE (NONTRAUMATIC) Status: Acute Comment: containes perforation S/P ERCP. No peritonitis. Continue prophylactic abx, pain control, NPO - Plan * .
--- NOTE | 2018-01-11 16:39 | PRG ---
DATE OF SERVICE: 01/11/2018 SUBJECTIVE: The patient is currently on the surgical floor. She has been admitted for a suspected microperforation after ERCP. We were asked to evaluate the patient as a surgical consult. The patient has remained n.p.o. and is receiving IV fluids. She states that her pain is controlled, and last night, had a small amount of flatulence and again this morning. The patient denies nausea or vomiting or any abdominal pain. The patient has been working with physical therapy and has been sitting beside the bed and a chair as tolerated. PHYSICAL EXAMINATION: VITAL SIGNS: Temperature is 98.0, heart rate 81, blood pressure 122/69, respirations 18, and oxygen saturation is 93% on room air. GENERAL: The patient is resting comfortably in bed. She is awake, alert, and oriented x3. HEENT: Unremarkable. LUNGS: Clear to auscultation with good inspiratory and expiratory effort. HEART: Regular rate and rhythm. ABDOMEN: Soft, flat. Minimally tender in the mid to right lower quadrant, which the patient states is improved from yesterday. The patient has no rebound or peritoneal signs. The patient has hypoactive bowel sounds. EXTREMITIES: Neurovascularly intact x4. LABORATORY RESULTS: White blood cell count 11.0, hemoglobin 12.7, hematocrit 37.3, and platelets 205. Sodium 133, potassium 3.8, chloride 106, CO2 of 22, BUN 16, creatinine 0.78, and glucose 85. IMAGING STUDIES: There are no radiographs to review this morning. ASSESSMENT: Status post endoscopic retrograde cholangiopancreatography with suspected microperforation. PLAN: Plan will be to continue broad spectrum antibiotics. Continue bowel rest until it is clear that she has bowel function and not an ileus. Continue to encourage ambulation. We will recheck her again in the morning. Evaluation, examination, and laboratory findings will be discussed with Dr. Sow who of note has done her cholecystectomy in the past. Job ID: [id number]
[2018-01-12] MEDS: MEROPENEM 1 GM/50 ML 1 GM in Premix Bag 1 BAG IVPB SCH ×3 (02:22→18:36)
[2018-01-12] MEDS: Sodium Chloride 0.9% 1,000 ML IV SCH ×3 (02:25→21:30)
[2018-01-12] MEDS: Famotidine/PF 20 mg/2ml Vial SLOW IVP SCH ×2 (08:37→20:10)
[2018-01-12] MEDS: Lactinex Tablet PO SCH ×2 (08:39→20:10)
--- NOTE | 2018-01-12 13:42 | PDOC.PN ---
- Subjective Encounter Start Date: 01/12/18 Encounter Start Time: 13:40 Subjective: no complains - Objective Resuscitation Status - Order Detail: 01/09/18 13:55 Resuscitation Status Routine Resuscitation Status: FULL: Full Resuscitation MAR Reviewed: Yes Vital Signs & Weight: Vital Signs (12 hours) Temp Pulse Resp BP Pulse Ox 01/12/18 11:11 98 F 68 20 146/67 H 95 01/12/18 08:37 94 L 01/12/18 07:27 98 F 80 22 H 148/81 H 94 L 01/12/18 03:54 98.3 F 67 18 116/65 94 L Weight Weight 138 lb 14.259 oz I&O: 01/11/18 01/12/18 01/13/18 06:59 06:59 06:59 Intake Total 1300 Balance 1300 Result Diagrams: 01/10/18 04:56 01/10/18 04:56 Phys Exam - Physical Examination HEENT: PERRLA, moist MMs, sclera anicteric, TM's clear, oral pharynx no lesions , 2+ tonsils Neck: no nodes, no JVD, supple, full ROM Respiratory: no wheezing, no rales, no rhonchi, clear to auscultation bilateral Cardiovascular: RRR, no significant murmur, no rub Gastrointestinal: soft, no distention, positive bowel sounds Musculoskeletal: no edema, pulses present Psychiatric: normal affect, A&O x 3 Skin: no rash, normal turgor, cap refill <2 seconds Dx/Plan (1) Perforation bowel Code(s): K63.1 - PERFORATION OF INTESTINE (NONTRAUMATIC) Status: Acute Comment: contained perforation S/P ERCP. No peritonitis. Continue prophylactic abx, pain control, NPO - Plan cont current plan of care, plan discussed w/ family, continue antibiotics, DVT proph w/SCDs * .
--- NOTE | 2018-01-12 15:00 | PRG ---
DATE OF SERVICE: 01/12/2018 SUBJECTIVE: The patient remains on the surgical floor. She is status post suspected microperforation after an ERCP. The patient has done well overnight. She has had bowel function return. She is passing flatus and she has been ambulatory. OBJECTIVE: VITAL SIGNS: Temperature is 98.0, heart rate 80, blood pressure 148/81, respirations 22, oxygen saturation 94% on room air. GENERAL: The patient is resting comfortably in bed. She is awake, alert, oriented, and appropriate. HEENT: Unremarkable. LUNGS: Clear to auscultation with good inspiratory and expiratory effort. HEART: Regular rate and rhythm. ABDOMEN: Soft, flat and just minimally tender in the lower quadrants with active bowel sounds. EXTREMITIES: Neurovascularly intact x4. LABORATORY RESULTS: There are no labs or radiographs to review this morning. ASSESSMENT: Status post endoscopic retrograde cholangiopancreatography with suspected microperforation. PLAN: Plan will be to continue her broad-spectrum antibiotics. We will allow her to have clear liquids and reevaluate her again in the morning. We will encourage to continue ambulation and notify us if there are any issues with her taking p.o.'s. Job ID: [id number]
[2018-01-13] MEDS: MEROPENEM 1 GM/50 ML 1 GM in Premix Bag 1 BAG IVPB SCH ×3 (03:18→17:52)
[2018-01-13 06:25] LABS: Anion Gap 9 mmol/L (10-20); BUN (Urea Nitrogen) 10 mg/dL (9.8-20.1); Calc. Creatinine Clearance 88 mL/min (70-130); Calcium 8.2 mg/dL (7.8-10.44); Carbon Dioxide 21 mmol/L (23-31); Chloride 111 mmol/L (98-107); Estimated GFR-MDRD Greater than 90; Glucose 92 mg/dL (83-110); Magnesium 1.7 mg/dL (1.6-2.6); Potassium 3.1 mmol/L (3.5-5.1); Sodium 138 mmol/L (136-145)
[2018-01-13 06:28] LABS: #Eosinphils 0.2 thou/uL (0.0-0.7); #Lymphocytes 1.3 thou/uL (1.20-3.40); #Monocytes 1.4 thou/uL (0.11-0.59); #Neutrophils 6.7 thou/uL (1.40-6.50); %Basophils 0.1 % (0.0-1.0); %Eosinophils 1.7 % (0.0-10.0); %Lymphocytes 13.6 % (21.0-51.0); %Monocytes 14.3 % (0.0-10.0); %Neutrophils 70.3 % (42.0-75.0); Hemoglobin 11.1 g/dL (12.0-16.0); Mean Corpuscular HGB CONC 34.2 g/dL (32.0-36.0); Mean Corpuscular Hemoglobin 31.5 pg (27.0-31.0); Mean Corpuscular Volume 92.1 fL (78.0-98.0); Mean Platelet Volume 7.3 fL (7.4-10.4); Platelet Count 215 thou/uL (130-400); RBC Distribution Width 12.1 % (11.5-14.5); Red Blood Cell (RBC) Count 3.51 mill/uL (4.20-5.40); White Blood Cell (WBC) Count 9.6 thou/uL (4.8-10.8)
[2018-01-13 06:31] LABS: Phosphorus 1.3 mg/dL (2.3-4.7)
[2018-01-13] MEDS ORDERED: SODIUM PHOSPHATE IVPB SCH (07:30)
[2018-01-13] MEDS ORDERED: [UNRECOGNIZED DRUG - OTHER] IVPB SCH (07:30)
[2018-01-13] MEDS ORDERED: POTASSIUM CHLORIDE IVPB SCH (07:30)
[2018-01-13] MEDS ORDERED: Potassium Chloride 20 MEQ/100 ML PREMIX BAG IVPB SCH (08:30)
[2018-01-13] MEDS: Famotidine/PF 20 mg/2ml Vial SLOW IVP SCH ×2 (08:30→20:00)
[2018-01-13] MEDS: Lactinex Tablet PO SCH ×2 (08:30→20:01)
[2018-01-13] MEDS ORDERED: Potassium Chloride 20 MEQ in Premix Bag 1 BAG IVPB SCH (09:00)
[2018-01-13] MEDS ORDERED: Clopidogrel Bisulfate 75 MG TAB ONE (10:20)
--- NOTE | 2018-01-13 12:39 | PDOC.PN ---
- Subjective Encounter Start Date: 01/13/18 Encounter Start Time: 12:37 Subjective: Reduced abd pain, some right flank pain, tolerating clears - Objective Resuscitation Status - Order Detail: 01/09/18 13:55 Resuscitation Status Routine Resuscitation Status: FULL: Full Resuscitation MAR Reviewed: Yes Vital Signs & Weight: Vital Signs (12 hours) Temp Pulse Resp BP Pulse Ox 01/13/18 11:23 98 F 80 18 158/85 H 92 L 01/13/18 08:30 91 L 01/13/18 07:32 97.8 F 89 18 132/73 91 L 01/13/18 03:45 98.1 F 74 16 121/67 92 L Weight Weight 138 lb 14.259 oz I&O: 01/12/18 01/13/18 01/14/18 06:59 06:59 06:59 Intake Total 5775 Balance 5775 Result Diagrams: 01/13/18 05:52 01/13/18 05:52 Phys Exam - Physical Examination HEENT: PERRLA, moist MMs, sclera anicteric, TM's clear, oral pharynx no lesions , 2+ tonsils Neck: no nodes, no JVD, supple, full ROM Respiratory: no wheezing, no rales, no rhonchi, clear to auscultation bilateral Cardiovascular: RRR, no significant murmur, no rub Gastrointestinal: soft, no distention, positive bowel sounds right flank/ right quadrant tenderness Musculoskeletal: no edema, pulses present Neurological: non-focal, normal sensation, moves all 4 limbs Psychiatric: normal affect, A&O x 3 Skin: no rash, normal turgor, cap refill <2 seconds Dx/Plan (1) Perforation bowel Code(s): K63.1 - PERFORATION OF INTESTINE (NONTRAUMATIC) Status: Acute Comment: contained perforation S/P ERCP. No peritonitis. Continue prophylactic abx, pain control, clears. Repeat CT if abd pain persist or increase. Right now patient has right mid quadrant tenderness - Plan cont current plan of care, continue antibiotics * .
[2018-01-13] MEDS: Sodium Chloride 0.9% 1,000 ML IV SCH (14:52)
[2018-01-13] MEDS ORDERED: Magnesium Sulfate 3 GM in Sodium Chloride 0.9% 250 ML 250 ML IVPB SCH (19:00)
[2018-01-14] MEDS: MEROPENEM 1 GM/50 ML 1 GM in Premix Bag 1 BAG IVPB SCH ×3 (01:01→20:42)
[2018-01-14] MEDS: Sodium Chloride 0.9% 1,000 ML IV SCH ×3 (04:25→18:15)
[2018-01-14 06:43] LABS: Band 13 % (5-11); Eosinophils 5 % (0-10); Hemoglobin 11.6 g/dL (12.0-16.0); Lymphocytes 16 % (21-51); MDiff Complete? YES; Mean Corpuscular HGB CONC 34.3 g/dL (32.0-36.0); Mean Corpuscular Hemoglobin 31.3 pg (27.0-31.0); Mean Corpuscular Volume 91.2 fL (78.0-98.0); Mean Platelet Volume 7.1 fL (7.4-10.4); Monocytes 10 % (0-10); Myelocyte 1 % (0-0); Neutrophil 54 % (42-75); PLT Morphology Comment Appears Adequate; Platelet Count 213 thou/uL (130-400); RBC Distribution Width 12.1 % (11.5-14.5); Reactive Lymphocytes 1 % (0-10); White Blood Cell (WBC) Count 9.8 thou/uL (4.8-10.8)
[2018-01-14 06:48] LABS: Anion Gap 10 mmol/L (10-20); BUN (Urea Nitrogen) 7 mg/dL (9.8-20.1); Calc. Creatinine Clearance 88 mL/min (70-130); Calcium 7.8 mg/dL (7.8-10.44); Carbon Dioxide 23 mmol/L (23-31); Chloride 108 mmol/L (98-107); Estimated GFR-MDRD Greater than 90; Glucose 97 mg/dL (83-110); Potassium 3.1 mmol/L (3.5-5.1); Sodium 138 mmol/L (136-145)
[2018-01-14 06:50] LABS: Phosphorus 1.4 mg/dL (2.3-4.7)
[2018-01-14] MEDS ORDERED: Sodium Phosphate 15 MMOL in Sodium Chloride 0.9% 250 ML 250 ML IVPB SCH (07:30)
--- NOTE | 2018-01-14 07:51 | PRG ---
DATE OF SERVICE: 01/13/2018 SUBJECTIVE: The patient is hospital day #5 status post admission for suspected microperforation after ERCP, whom we are seeing in consultation. The patient yesterday was started on clear liquids and she tolerated these well. She has had bowel movements. She has been able to ambulate without difficulty and be out of bed to chair, and the patient continues to have flatus. PHYSICAL EXAMINATION: VITAL SIGNS: Temperature is 97.8, heart rate 89, blood pressure 132/73, respirations 18, and oxygen saturation 91% on room air. GENERAL: The patient is resting comfortably in bed. She is awake, alert, and oriented x3. HEENT: Unremarkable. LUNGS: Clear to auscultation with good inspiratory and expiratory effort. HEART: Regular rate and rhythm. ABDOMEN: Soft, flat, and somewhat tender in the right lower quadrant primarily and has active bowel sounds. EXTREMITIES: Neurovascularly intact x4. LABORATORY FINDINGS: White blood cell count 9.6, hemoglobin 11.1, hematocrit 32.3, and platelets 215. Sodium was 138, potassium 3.1, chloride 111, CO2 of 21, BUN 10, creatinine 0.54, glucose 92, phosphorus 1.3, and magnesium 1.7. There are no radiographs to review this morning. ASSESSMENT: Status post endoscopic retrograde cholangiopancreatography with suspected microperforation. PLAN: Plan will be to continue her broad-spectrum antibiotics, supportive care, IV electrolyte replacement. We will advance her diet to full liquids today and likely she will be able to progress to a regular diet tomorrow and hopefully changed to p.o. antibiotics. Job ID: [id number]
[2018-01-14] MEDS: Famotidine/PF 20 mg/2ml Vial SLOW IVP SCH ×2 (08:16→20:44)
[2018-01-14] MEDS: Lactinex Tablet PO SCH ×2 (08:16→20:44)
--- NOTE | 2018-01-14 11:13 | PRG ---
DATE OF SERVICE: 01/14/2018 SUBJECTIVE: Ms. Arredondo has no complaints today. Her pain is much improved. She is up and walking in the room, but not in the hallway. OBJECTIVE: VITAL SIGNS: She is afebrile. Her pulse is 112, blood pressure is 133/89. Her pulse previously had been in the 80s to 90s. ABDOMEN: Soft. She is minimally tender. LABORATORY DATA: White cell count is 9, hemoglobin is 11, platelet count is 213, she has 13 bands. ASSESSMENT: Microperforation from endoscopic retrograde cholangiopancreatography, clinically improved. PLAN: She got advanced on her diet today. She needs to be more ambulatory, likely home soon. Continue antibiotics. Job ID: [id number]
--- NOTE | 2018-01-14 20:42 | PDOC.PN ---
- Subjective Encounter Start Date: 01/14/18 Encounter Start Time: 20:25 Subjective: f/u for microperforation s/p ERCP medically managed with Meropenem -: and slow titration of po intake. Feels good overall and tolerating current -: diet. Ambulating without difficulty - Objective Resuscitation Status - Order Detail: 01/09/18 13:55 Resuscitation Status Routine Resuscitation Status: FULL: Full Resuscitation MAR Reviewed: Yes Vital Signs & Weight: Vital Signs (12 hours) Temp Pulse Resp BP Pulse Ox 01/14/18 20:31 98.8 F 89 22 H 130/71 94 L 01/14/18 16:32 97.9 F 98 18 144/80 H 92 L 01/14/18 11:50 98 F 91 18 120/89 92 L Weight Weight 138 lb 14.259 oz I&O: 01/13/18 01/14/18 01/15/18 06:59 06:59 06:59 Intake Total 5775 3717 2650 Balance 5775 3717 2650 Result Diagrams: 01/14/18 06:09 01/14/18 06:09 Additional Labs: Laboratory Tests 01/10/18 01/13/18 01/14/18 04:56 05:52 06:09 Sodium 133 L Potassium 3.8 3.1 L Phosphorus 1.3 L 1.4 L Magnesium 1.7 Phys Exam - Physical Examination Constitutional: NAD HEENT: PERRLA, sclera anicteric, oral pharynx no lesions Neck: no nodes, no JVD, supple, full ROM Respiratory: no wheezing, no rales, no rhonchi, clear to auscultation bilateral S1, S2 Cardiovascular: RRR, no significant murmur, no rub, gallop mild TTP in mid-epigastric region Gastrointestinal: soft, no distention, positive bowel sounds Musculoskeletal: no edema, pulses present Neurological: normal sensation, moves all 4 limbs Psychiatric: normal affect, A&O x 3 Skin: normal turgor, cap refill <2 seconds Dx/Plan (1) Perforation bowel Code(s): K63.1 - PERFORATION OF INTESTINE (NONTRAUMATIC) Status: Acute Comment: contained perforation S/P ERCP. continue Meropenem another 24h then convert to po abx, continue med mgmt (2) Hypophosphatemia Code(s): E83.39 - OTHER DISORDERS OF PHOSPHORUS METABOLISM Status: Acute Comment: Mild, will normalize with resumption of normal po intake (3) GERD (gastroesophageal reflux disease) Code(s): K21.9 - GASTRO-ESOPHAGEAL REFLUX DISEASE WITHOUT ESOPHAGITIS Status: Chronic Qualifiers: Esophagitis presence: esophagitis presence not specified Qualified Code(s) : K21.9 - Gastro-esophageal reflux disease without esophagitis Comment: Continue Pepcid 20mg BID (4) Hypokalemia Code(s): E87.6 - HYPOKALEMIA Status: Acute Comment: Improved with KCL supplementation and resuming regular diet - Plan continue antibiotics, PT/OT, out of bed/ambulate, DVT proph w/SCDs Stable overall -: Continue Meropenem another 24h then convert to po abx -: OOB/ambulate -: Resume Multaq -: Likely home in 24h * .
[2018-01-14] MEDS: Dronedarone HCl 400 MG TAB PO SCH (21:56)
[2018-01-15] MEDS: MEROPENEM 1 GM/50 ML 1 GM in Premix Bag 1 BAG IVPB SCH ×3 (04:19→20:59)
[2018-01-15] MEDS: Sodium Chloride 0.9% 1,000 ML IV SCH ×2 (04:19→21:25)
[2018-01-15] MEDS: Dronedarone HCl 400 MG TAB PO SCH ×2 (08:55→20:59)
[2018-01-15] MEDS: Famotidine/PF 20 mg/2ml Vial SLOW IVP SCH ×2 (08:55→21:00)
[2018-01-15] MEDS: Lactinex Tablet PO SCH ×2 (08:55→20:59)
[2018-01-15] MEDS: Losartan 25 MG TAB PO SCH (08:55)
[2018-01-15 09:35] LABS: Anion Gap 9 mmol/L (10-20); BUN (Urea Nitrogen) 6 mg/dL (9.8-20.1); Calc. Creatinine Clearance 101 mL/min (70-130); Carbon Dioxide 25 mmol/L (23-31); Chloride 104 mmol/L (98-107); Estimated GFR-MDRD Greater than 90; Glucose 91 mg/dL (83-110); Magnesium 1.8 mg/dL (1.6-2.6); Sodium 135 mmol/L (136-145)
[2018-01-15 09:46] LABS: Phosphorus 1.4 mg/dL (2.3-4.7)
[2018-01-15 09:47] LABS: Potassium 2.9 mmol/L (3.5-5.1)
--- NOTE | 2018-01-15 10:03 | PDOC.PN ---
- Subjective Encounter Start Date: 01/15/18 Encounter Start Time: 10:00 Subjective: f/u for perforated small bowel after ERCP medically managed currently. -: Some abd discomfort after eating. Still weak but using a walker to -: ambulate. - Objective Resuscitation Status - Order Detail: 01/09/18 13:55 Resuscitation Status Routine Resuscitation Status: FULL: Full Resuscitation MAR Reviewed: Yes Vital Signs & Weight: Vital Signs (12 hours) Temp Pulse Resp BP Pulse Ox 01/15/18 08:41 91 L 01/15/18 07:16 98 F 80 18 144/73 H 91 L 01/15/18 04:42 98.4 F 81 19 135/80 93 L 01/15/18 00:21 98.2 F 90 20 137/76 93 L Weight Weight 138 lb 14.259 oz I&O: 01/14/18 01/15/18 01/16/18 06:59 06:59 06:59 Intake Total 3717 2650 1320 Balance 3717 2650 1320 Result Diagrams: 01/14/18 06:09 01/15/18 08:55 Additional Labs: Laboratory Tests 01/10/18 01/13/18 01/14/18 04:56 05:52 06:09 Sodium 133 L Potassium 3.8 3.1 L Phosphorus 1.3 L 1.4 L Magnesium 1.7 Radiology Reviewed by me: Yes (CT abd - pending) Phys Exam - Physical Examination Constitutional: NAD HEENT: PERRLA, sclera anicteric, oral pharynx no lesions Neck: no nodes, no JVD, supple, full ROM Respiratory: no wheezing, no rales, no rhonchi, clear to auscultation bilateral S1, S2 Cardiovascular: RRR, no significant murmur, no rub, gallop minimal distention Gastrointestinal: soft, non-tender, positive bowel sounds Musculoskeletal: no edema, pulses present Neurological: normal sensation, moves all 4 limbs Psychiatric: normal affect, A&O x 3 Skin: normal turgor, cap refill <2 seconds Dx/Plan (1) Perforation bowel Code(s): K63.1 - PERFORATION OF INTESTINE (NONTRAUMATIC) Status: Acute Comment: contained perforation S/P ERCP. continue Meropenem another 24h then convert to po abx, continue med mgmt, repeat CT abd today per surgery (2) Hypophosphatemia Code(s): E83.39 - OTHER DISORDERS OF PHOSPHORUS METABOLISM Status: Acute Comment: Mild, will normalize with resumption of normal po intake (3) GERD (gastroesophageal reflux disease) Code(s): K21.9 - GASTRO-ESOPHAGEAL REFLUX DISEASE WITHOUT ESOPHAGITIS Status: Chronic Qualifiers: Esophagitis presence: esophagitis presence not specified Qualified Code(s) : K21.9 - Gastro-esophageal reflux disease without esophagitis Comment: Continue Pepcid 20mg BID (4) Hypokalemia Code(s): E87.6 - HYPOKALEMIA Status: Acute Comment: KCL 40meq x 1 now then 40meq BID, repeat K+ level in am - Plan continue antibiotics, PT/OT, manager social responsibility, out of bed/ambulate, DVT proph w/ SCDs Stable currently -: ADAT -: KCL 40meq TID today -: OOB/ambulate -: AM lab: BMP, CBC * .
--- NOTE | 2018-01-15 10:52 | PRG ---
DATE OF SERVICE: SUBJECTIVE: Ms. Arredondo still has some pain in the right abdomen, but it is much improved since admission. She is tolerating mostly GI soft diet without any nausea, vomiting. She has not had a bowel movement. PHYSICAL EXAMINATION: She is afebrile. Vital signs are stable. Pulse is normal at 80. Multiple voids. Her abdomen is soft, tender in the right upper quadrant, but no significant guarding or rebound. LABORATORY DATA: Creatinine today is 2.9, phos is 1.4. ASSESSMENT: Post endoscopic retrograde cholangiopancreatography perforation that was retroperitoneal and contained, clinically improved but plan CT of the abdomen and pelvis today with oral contrast to reassess, make sure the perforation has continued to seal and is not worse. Job ID: [id number]
[2018-01-15] MEDS ORDERED: Potassium Chloride 20 MEQ TAB PO SCH (11:30)
[2018-01-15] MEDS ORDERED: SODIUM PHOSPHATE IVPB SCH (12:30)
[2018-01-15] MEDS ORDERED: POTASSIUM CHLORIDE IVPB SCH (12:30)
[2018-01-15] MEDS ORDERED: SODIUM CHLORIDE 0.9% IVPB SCH (12:30)
--- NOTE | 2018-01-15 13:23 | CT ---
CT ABDOMEN AND PELVIS WITH IV CONTRAST: DATE: 01/15/2018. HISTORY: Followup examination. The patient has abdominal pain. ERCP exam performed 1 week ago. COMPARISON: 01/09/2018. FINDINGS: There has been interval increase in bilateral pleural effusions with moderate-sized bilateral pleural effusions and bibasilar areas of consolidation, probably attributable to passive atelectasis. Calcification of mitral valve annulus are noted with vascular calcifications seen in the abdominal ao rta an dilaic arteries. Post cholecystectomy changes are again seen. The gas within the pararenal space on the right has diminished, although foci of gas do persist just superior to the right kidney and adjacent to the 2nd portion of the duodenum. Fluid within the perir enal space and extending into the right paracolic gutter are again seen with collection appearing mor e multiloculated on the current exam. The fluid collection with internal septations grossly measures 13.7 cm craniocaudal x 7.8 cm transverse x 7 cm AP in maximal dimensions. The collection does demon strate thin enhancing selby, and the findings could be related to developing abscess colleciton withi n the anterior perirenal space and in the right paracolic gutter. There are stable subcentimeter hypodense lesions in each kidney. The liver, spleen, pancreas, bilateral adrenal glands, and opacified small bowel demonstrate a normal CT appearance. Gas is present within the urinary bladder which may be relaed to recent catheterization, but clinical correlation is recommended. This was also present on prior exam. Pessary device is seen within the vagina and there is evidence of prior hysterectomy. There is free fluid now present within the pelvis. Mild subcutaneous edema is present. No other interval change from the prior exam. IMPRESSION: 1. Interval increase in bilateral pleural effusions with moderately large bilateral pleural effusion s and bibasilar atelectasis probably attributable to passive atelectasis. 2. Improvement in retroperitoneal gas. Again noted is fluid within this region, and on today's exam ination this fluid collection appears more loculated with septations. Findings may be related to dev eloping infection/abscess collection. Pancreatic pseudocyst cannot be excluded given patient's histor y. 3. Almost complete resolution of the previously noted pneumobilia. Postcholecystectomy changes are again present. 4. Subcentimeter too small to characterize hypodense lesions in each kidney. 5. Interval development of free fluid within the pelvis. 6. Gas in the urinary bladder which may be related to recent catheterization, but clinical correlati on is recommended. 7. The remainder of the findings are as described above. POS: [facility]
[2018-01-15] MEDS ORDERED: Sodium Bicarbonate 2.5 MEQ/5 ML VIAL ONE (13:35)
[2018-01-15] MEDS ORDERED: Lidocaine 1% PF 5 ML VIAL ONE (13:36)
[2018-01-15] MEDS ORDERED: Iopamidol 370 76% 50 ML VIAL FS ONE (13:39)
[2018-01-15] MEDS ORDERED: ISOVUE-370 76%-LOCM 1 ML ONE (13:39)
--- NOTE | 2018-01-15 16:01 | CT ---
CT GUIDED PERCUTANEOUS FLUID COLLECTION DRAINAGE: DATE: 01/15/2018. HISTORY: Retroperitoneal fluid collection in the pararenal space and extending into the paracolic gutter on th e right. TECHNIQUE: After informed consent was obtained, the patient was placed on the CT scan table in the prone positio n. Limited noncontrasted CT images were obtained through the abdomen with the patient in prone posit ion with grid localizer in place. An area was marked and then meticulously prepped and draped in the usual sterile fashion. The skin and subcutaneous tissues were infiltrated with buffered 1% Lidocaine for local anesthesia. A 22-gauge Chiba needle was advanced into the collection and position was confirmed with [address] images. The needle was then further advanced into the collection and approximately 1.5 mL of jelly-like miller fluid was aspirated. Definite purulent material was not aspirated at this time. The specimen was sent for gram stain and culture as well as amylase and lipase. If fluid collectio n returns as infection, a drainage catheter can be placed. This was discussed with the patient at th is time. IMPRESSION: Technically successful CT-guided percutaneous needle aspiration of collection in right paracolic gutt er. POS: [facility]
[2018-01-15] MEDS: Potassium Chloride 20 MEQ TAB PO SCH (17:37)
[2018-01-16] MEDS: Sodium Chloride 0.9% 1,000 ML IV SCH ×4 (00:33→20:54)
[2018-01-16] MEDS: MEROPENEM 1 GM/50 ML 1 GM in Premix Bag 1 BAG IVPB SCH ×3 (03:49→20:50)
[2018-01-16 07:01] LABS: Hemoglobin 11.1 g/dL (12.0-16.0); Mean Corpuscular HGB CONC 33.4 g/dL (32.0-36.0); Mean Corpuscular Hemoglobin 30.5 pg (27.0-31.0); Mean Corpuscular Volume 91.3 fL (78.0-98.0); Mean Platelet Volume 7.3 fL (7.4-10.4); Platelet Count 265 thou/uL (130-400); RBC Distribution Width 12.4 % (11.5-14.5); Red Blood Cell (RBC) Count 3.65 mill/uL (4.20-5.40)
[2018-01-16 07:13] LABS: Anion Gap 9 mmol/L (10-20); BUN (Urea Nitrogen) 6 mg/dL (9.8-20.1); Calc. Creatinine Clearance 88 mL/min (70-130); Carbon Dioxide 25 mmol/L (23-31); Chloride 106 mmol/L (98-107); Estimated GFR-MDRD Greater than 90; Glucose 93 mg/dL (83-110); Potassium 3.7 mmol/L (3.5-5.1); Sodium 136 mmol/L (136-145)
[2018-01-16 07:39] LABS: Band 18 % (5-11); Eosinophils 1 % (0-10); Lymphocytes 9 % (21-51); MDiff Complete? YES; Monocytes 6 % (0-10); Myelocyte 1 % (0-0); Neutrophil 63 % (42-75); PLT Morphology Comment Appears Adequate; Polychromasia SLIGHT = 2-3 cells (100X) (0-2/hpf); Reactive Lymphocytes 2 % (0-10); Toxic Granulation SLIGHT
[2018-01-16] MEDS: Dronedarone HCl 400 MG TAB PO SCH ×2 (08:38→20:51)
[2018-01-16] MEDS: Lactinex Tablet PO SCH ×2 (08:38→20:51)
[2018-01-16] MEDS: Famotidine/PF 20 mg/2ml Vial SLOW IVP SCH ×2 (08:38→20:51)
[2018-01-16] MEDS: Losartan 25 MG TAB PO SCH (08:38)
[2018-01-16] MEDS: Potassium Chloride 20 MEQ TAB PO SCH ×2 (08:38→18:14)
--- NOTE | 2018-01-16 15:16 | PDOC.PN ---
- Subjective Encounter Start Date: 01/16/18 Encounter Start Time: 15:05 Subjective: f/u for small bowel perforation s/p ERCP with conservative mgmt. -: s/p CT-guided percutaneous needle aspiration with peritoneal fluid -: cx negative. Feels better overall and tolerating po intake. - Objective Resuscitation Status - Order Detail: 01/09/18 13:55 Resuscitation Status Routine Resuscitation Status: FULL: Full Resuscitation MAR Reviewed: Yes Vital Signs & Weight: Vital Signs (12 hours) Temp Pulse Resp BP Pulse Ox 01/16/18 11:28 97.9 F 78 22 H 136/81 94 L 01/16/18 08:35 94 L 01/16/18 07:44 98.1 F 80 22 H 135/79 94 L 01/16/18 04:24 98.6 F 86 19 121/73 94 L Weight Weight 138 lb 14.259 oz I&O: 01/15/18 01/16/18 01/17/18 06:59 06:59 06:59 Intake Total 2650 3023.2 Balance 2650 3023.2 Result Diagrams: 01/16/18 06:03 01/16/18 06:03 Additional Labs: Microbiology 01/15/18 14:30 Peritoneal Fluid Culture Body Fluid Culture - Preliminary Laboratory Tests 01/10/18 01/13/18 01/14/18 04:56 05:52 06:09 WBC 9.8 Band Neuts % (Manual) 13 H Sodium 133 L Potassium 3.8 3.1 L Phosphorus 1.3 L Magnesium 1.7 01/14/18 01/15/18 01/15/18 06:09 08:55 08:55 WBC Band Neuts % (Manual) Sodium Potassium 2.9 L* Phosphorus 1.4 L 1.4 L Magnesium 01/16/18 06:03 WBC Band Neuts % (Manual) 18 H Sodium Potassium Phosphorus Magnesium Radiology Reviewed by me: Yes (CT abd - improved pneumobilia, small free fluid) Phys Exam - Physical Examination Constitutional: NAD HEENT: PERRLA, sclera anicteric, oral pharynx no lesions Neck: no nodes, no JVD, supple, full ROM Respiratory: no wheezing, no rales, no rhonchi, clear to auscultation bilateral S1, S2 Cardiovascular: RRR, no significant murmur, no rub, gallop Gastrointestinal: soft, non-tender, no distention, positive bowel sounds Musculoskeletal: no edema, pulses present Neurological: normal sensation, moves all 4 limbs Psychiatric: A&O x 3 Skin: normal turgor, cap refill <2 seconds Dx/Plan (1) Perforation bowel Code(s): K63.1 - PERFORATION OF INTESTINE (NONTRAUMATIC) Status: Acute Comment: contained perforation S/P ERCP. continue Meropenem another 24h then convert to po abx, continue med mgmt (2) Hypophosphatemia Code(s): E83.39 - OTHER DISORDERS OF PHOSPHORUS METABOLISM Status: Acute Comment: Mild, will normalize with resumption of normal po intake (3) GERD (gastroesophageal reflux disease) Code(s): K21.9 - GASTRO-ESOPHAGEAL REFLUX DISEASE WITHOUT ESOPHAGITIS Status: Chronic Qualifiers: Esophagitis presence: esophagitis presence not specified Qualified Code(s) : K21.9 - Gastro-esophageal reflux disease without esophagitis Comment: Continue Pepcid 20mg BID (4) Hypokalemia Code(s): E87.6 - HYPOKALEMIA Status: Acute Comment: KCL 40meq x 1 now then 40meq BID, repeat K+ level in am - Plan continue antibiotics, PT/OT, social media job titles, out of bed/ambulate, DVT proph w/ SCDs Stable overall -: Continue KCL supplementation -: Continue IV abx another 24h -: Saline lock IVF's in am -: Likely home in 24h * .
--- NOTE | 2018-01-16 17:41 | PRG ---
DATE OF SERVICE: 01/16/2018 SUBJECTIVE: The patient is resting comfortably in bed. Reports continued improvement of abdominal pain. Reports good p.o. toleration with bowel movement. The patient has no further complaints at this time. OBJECTIVE: VITAL SIGNS: Blood pressure 135/79, pulse 80, respirations 22, O2 sat 94% on room air, and temperature 98.1. GENERAL: Alert and oriented. No acute distress. HEENT: EOMI. No conjunctivitis. NECK: Trachea midline. RESPIRATORY: No cyanosis. Equal chest rise. ABDOMEN: Mild tenderness in right upper quadrant with mild guarding as well as mild tenderness to palpation of right flank. LABORATORY DATA: White blood cell count 12, hemoglobin 11.1, hematocrit 33.3. Sodium 136, potassium 3.7, BUN 6, and creatinine 0.54. ASSESSMENT: This patient is status post endoscopic retrograde cholangiopancreatography with perforation that is contained with confirmation from CT yesterday with p.o. contrast. CT did show pericolic fluid, which was then aspirated on CT-guided needle aspiration. Aspiration showed gelatinous fluid indicative of inflammation, which also had gram-positive cocci on Gram stain. This is thought to be possible sequela of pancreatic pseudocyst versus remnant inflammation from pancreatitis. We will plan for further treatment with IV Merrem for 1 to 2 more days with plans for discharge on p.o. antibiotics either tomorrow or Sunday. This patient was seen and evaluated by Dr. Cheng on morning rounds. The patient verbalized understanding and agreement with the plan. Job ID: [id number]
[2018-01-17] MEDS: MEROPENEM 1 GM/50 ML 1 GM in Premix Bag 1 BAG IVPB SCH ×2 (04:41→13:11)
[2018-01-17] MEDS: Sodium Chloride 0.9% 1,000 ML IV SCH ×2 (09:00→12:44)
[2018-01-17] MEDS: Potassium Chloride 20 MEQ TAB PO SCH (09:01)
[2018-01-17] MEDS: Losartan 25 MG TAB PO SCH (09:01)
[2018-01-17] MEDS: Dronedarone HCl 400 MG TAB PO SCH ×2 (09:01→20:10)
[2018-01-17] MEDS: Lactinex Tablet PO SCH ×2 (09:04→20:10)
[2018-01-17] MEDS: Famotidine/PF 20 mg/2ml Vial SLOW IVP SCH (09:04)
--- NOTE | 2018-01-17 10:38 | PDOC.PN ---
- Subjective Encounter Start Date: 01/17/18 Encounter Start Time: 10:30 Subjective: f/u for micropeforation of small bowel s/p ERCP. Conservative mgmt -: per surgery s/p CT-guided needle aspiration with gm+ cocci. Continues -: on Meropenem. Feels ok overall. - Objective Resuscitation Status - Order Detail: 01/09/18 13:55 Resuscitation Status Routine Resuscitation Status: FULL: Full Resuscitation MAR Reviewed: Yes Vital Signs & Weight: Vital Signs (12 hours) Temp Pulse Resp BP Pulse Ox 01/17/18 07:49 97.9 F 90 18 160/82 H 92 L 01/17/18 03:00 97.9 F 81 22 H 138/77 94 L 01/16/18 23:49 98.4 F 87 19 129/78 93 L Weight Weight 138 lb 14.259 oz I&O: 01/16/18 01/17/18 01/18/18 06:59 06:59 06:59 Intake Total 3023.2 2300 Balance 3023.2 2300 Result Diagrams: 01/16/18 06:03 01/16/18 06:03 Additional Labs: Microbiology 01/15/18 14:30 Peritoneal Fluid Culture Body Fluid Culture - Preliminary 01/15/18 14:30 Peritoneal Fluid Culture Body Fluid Culture - Preliminary Laboratory Tests 01/10/18 01/13/18 01/14/18 04:56 05:52 06:09 WBC 9.8 Band Neuts % (Manual) 13 H Sodium 133 L Potassium 3.8 3.1 L Phosphorus 1.3 L Magnesium 1.7 01/14/18 01/15/18 01/15/18 06:09 08:55 08:55 WBC Band Neuts % (Manual) Sodium Potassium 2.9 L* Phosphorus 1.4 L 1.4 L Magnesium 01/16/18 06:03 WBC Band Neuts % (Manual) 18 H Sodium Potassium Phosphorus Magnesium Phys Exam - Physical Examination Constitutional: NAD HEENT: PERRLA, sclera anicteric, oral pharynx no lesions Neck: no nodes, no JVD, supple, full ROM Respiratory: no wheezing, no rales, no rhonchi, clear to auscultation bilateral S1, S2 Cardiovascular: RRR, no significant murmur, no rub, gallop minimal TTP Gastrointestinal: soft, no distention, positive bowel sounds Musculoskeletal: no edema, pulses present Neurological: normal sensation, moves all 4 limbs Psychiatric: A&O x 3 Skin: normal turgor, cap refill <2 seconds Dx/Plan (1) Perforation bowel Code(s): K63.1 - PERFORATION OF INTESTINE (NONTRAUMATIC) Status: Acute Comment: contained perforation S/P ERCP. continue Meropenem another 24h then convert to po abx, continue med mgmt (2) Hypophosphatemia Code(s): E83.39 - OTHER DISORDERS OF PHOSPHORUS METABOLISM Status: Acute Comment: Mild, will normalize with resumption of normal po intake (3) GERD (gastroesophageal reflux disease) Code(s): K21.9 - GASTRO-ESOPHAGEAL REFLUX DISEASE WITHOUT ESOPHAGITIS Status: Chronic Qualifiers: Esophagitis presence: esophagitis presence not specified Qualified Code(s) : K21.9 - Gastro-esophageal reflux disease without esophagitis Comment: Convert to Protonix 40mg po daily (4) Hypokalemia Code(s): E87.6 - HYPOKALEMIA Status: Acute Comment: KCL 40meq x 1 now then 40meq BID, repeat K+ level in am - Plan continue antibiotics, PT/OT, social science analyst, out of bed/ambulate, DVT proph w/ SCDs Stable currently -: Start Flagyl 500mg po TID -: Start Levaquin 750mg po daily -: Change KCL 40meq daily -: Start Protonix 40mg daily * Likely home in am
--- NOTE | 2018-01-17 11:39 | PRG ---
DATE OF SERVICE: 01/17/2018 SUBJECTIVE: The patient is resting comfortably in bed, in no acute distress. The patient reports good control of abdominal pain and was continued good p.o. toleration and ambulation. The patient has no complaints at this time. OBJECTIVE: VITAL SIGNS: Blood pressure 160/82, pulse 90, respirations 18, O2 saturation is 92% on room air, and temperature 97.9. GENERAL: Alert and oriented. No acute distress. HEENT: EOMI. No conjunctivitis. Moist mucosal membranes. NECK: Trachea midline. RESPIRATORY: No cyanosis. Bilateral equal chest rise. CARDIOVASCULAR: No edema. Regular rate. LABORATORY DATA: There is no new laboratory data today for this patient. ASSESSMENT: This patient is status post endoscopic retrograde cholangiopancreatography with perforation that is contained with confirmation from CT with p.o. contrast. The patient also has pericolic fluid, which is status post aspiration from CT-guided needle aspiration, suspected to be sequela of pancreatic pseudocyst versus inflammation from remnant pancreatitis. We recommend continued treatment of IV Merrem today with switching to p.o. antibiotics today and planning for discharge tomorrow pending continued clinical improvement. This patient was seen and evaluated by Dr. Cheng on morning rounds. The patient verbalized understanding and was in agreement with plan. Job ID: [id number]
[2018-01-17] MEDS ORDERED: Potassium Chloride 20 MEQ TAB PO SCH (12:45)
[2018-01-17] MEDS: metroNIDAZOLE 500 MG TAB PO SCH ×2 (14:50→20:10)
[2018-01-18 06:10] LABS: #Basophils 0.1 thou/uL (0.0-0.2); #Eosinphils 0.4 thou/uL (0.0-0.7); #Lymphocytes 1.5 thou/uL (1.20-3.40); #Monocytes 1.3 thou/uL (0.11-0.59); #Neutrophils 7.8 thou/uL (1.40-6.50); %Basophils 0.5 % (0.0-1.0); %Eosinophils 3.8 % (0.0-10.0); %Lymphocytes 13.2 % (21.0-51.0); %Monocytes 11.8 % (0.0-10.0); %Neutrophils 70.7 % (42.0-75.0); Hemoglobin 11.9 g/dL (12.0-16.0); Mean Corpuscular HGB CONC 33.9 g/dL (32.0-36.0); Mean Corpuscular Hemoglobin 31.4 pg (27.0-31.0); Mean Corpuscular Volume 92.5 fL (78.0-98.0); Mean Platelet Volume 7.1 fL (7.4-10.4); Platelet Count 350 thou/uL (130-400); RBC Distribution Width 12.4 % (11.5-14.5)
[2018-01-18] MEDS: Losartan 25 MG TAB PO SCH (08:17)
[2018-01-18] MEDS: Lactinex Tablet PO SCH (08:17)
[2018-01-18] MEDS: Dronedarone HCl 400 MG TAB PO SCH (08:17)
[2018-01-18] MEDS: metroNIDAZOLE 500 MG TAB PO SCH ×2 (08:18→14:53)
[2018-01-18] MEDS: Sodium Chloride 0.9% 1,000 ML IV SCH (08:22)
[2018-01-18] MEDS ORDERED: Potassium Chloride 20 MEQ TAB PO SCH (09:00)
[2018-01-18 11:44] VITALS: BP 113/72; TEMP 97.9
--- NOTE | 2018-01-18 18:22 | PRG ---
DATE OF SERVICE: 01/18/2018 SUBJECTIVE: The patient is a 77-year-old female, who was a surgery consult for abdominal pain, status post endoscopic retrograde cholangiopancreatography. There was no reported overnight events. The patient is resting comfortably in bed, in no distress. She denies any abdominal pain and she continues to have good oral intake. The patient reports passing gas and bowels working. The patient has been up walking around today without any issues. The patient has no complaints at this time. OBJECTIVE: VITAL SIGNS: Blood pressure 125/74, respirations 14, heart rate 74, temperature 98.1, SpO2 92% on room air. GENERAL: Alert and oriented, in no acute distress. RESPIRATORY: The patient has bilateral equal chest rise. No cyanosis. Respirations are unlabored. ABDOMINAL: non tender, soft CARDIOVASCULAR: Regular rate. No murmur. No edema. LABORATORY DATA: White blood count 11.0, RBC 3.80, hemoglobin 11.9, hematocrit 35.2. ASSESSMENT AND PLAN: The patient is status post endoscopic retrograde cholangiopancreatography with perforation. The patient has been switched to p.o. antibiotics. The patient is to take p.o. antibiotics for 14 days, and follow up in the clinic in 14 days. She has been instructed that she needs a CT of the abdomen and pelvis with p.o. and IV contrast before her appointment. Plan has been discussed with Dr. Feliciano, hospitalist. The patient was discussed with the attending surgeon. Job ID: [id number] MTDD
--- NOTE | 2018-01-19 07:30 | DIS ---
DATE OF ADMISSION: 01/09/2018 DATE OF DISCHARGE: 01/18/2018 DISCHARGE DIAGNOSES: 1. Microperforation of small bowel, status post endoscopic retrograde cholangiopancreatography, conservatively managed. 2. Hypophosphatemia, improved. 3. Gastroesophageal reflux disease, stable. 4. Hypokalemia, improved. 5. History of recurrent pancreatitis. CONSULTATIONS: Dr. Wells and Dr. Cheng with General Surgery Service. PERTINENT LABORATORY AND DIAGNOSTIC DATA: Sodium ranged between 133 to 138, potassium ranged between 2.9 to 3.9, phosphorus ranged between 1.3 to 1.4, magnesium level ranged between 1.7 to 1.8. Lipase of 47. CBC showed a white blood cell count ranged between 9.6 to 15.4, hemoglobin ranged between 11.1 to 15.4. Peritoneal fluid culture, dated 01/15/2018, showed no growth at [address] of the abdomen and pelvis, dated 01/09/2018, showed free intraperitoneal air in the upper abdomen with prominent air surrounding the second portion of the duodenum and pancreas into Morison pouch. CT of the abdomen and pelvis, dated 01/15/2018, showed improvement in retroperitoneal gas. Loculated fluid collection with septations noted. Near-complete resolution of previously noted pneumobilia. Moderately large bilateral pleural effusions. HOSPITAL COURSE: The patient was admitted to the surgical [facility] after initially presenting with severe abdominal pain, status post recent ERCP in the context of recurrent pancreatitis. The patient underwent CT imaging of the abdomen and pelvis showing free intraperitoneal air with likely microperforation of the duodenum. The patient was placed on meropenem, intravenous normal saline, and given morphine sulfate for pain control. The patient was evaluated by the General Surgery Service with a concern for bowel perforation. The patient was conservatively managed with serial abdominal exams, IV antibiotics, and IV morphine sulfate. The patient was slow to clinically improve, and placed on n.p.o. status with slow resolution of abdominal pain. The patient underwent subsequent reimaging of the abdomen and pelvis with needle aspiration of fluid collection showing no growth at 3 days. The patient transitioned from IV meropenem to current regimen of Levaquin and Flagyl with advancement of her diet. The patient was tolerating regular oral intake and ambulating with Physical Therapy. The patient did clinically improve with conservative measures and did not need further acute surgical intervention. I have examined the patient at the time of discharge and discussed followup instructions, at which point, the patient verbalized understanding and in agreement. The patient is overall clinically stable and ready for discharge on 01/18/2018. DISCHARGE MEDICATIONS: 1. Levaquin 750 mg p.o. daily x10 days. 2. Flagyl 500 mg p.o. t.i.d. x10 days. 3. Zantac 300 mg p.o. b.i.d. 4. Cozaar 50 mg p.o. daily. 5. Lactobacillus 1 capsule p.o. b.i.d. 6. Multaq 400 mg p.o. b.i.d. 7. Vitamin B complex 1 capsule p.o. daily. FOLLOWUP: The patient is to follow up with Dr. Catie Bowser with [facility] within 7 days of discharge. The patient will follow up with Dr. Wells with General Surgery Service within 2 weeks of discharge. SPECIAL INSTRUCTIONS: The patient is to follow up with Outpatient Physical Therapy Services within 3 days of discharge. CONDITION ON DISCHARGE: Stable. ACTIVITY: Ad akshat. DIET: Regular. CODE STATUS: Full. DISPOSITION: Home on 01/18/2018. TIME SPENT: Total time preparing and coordinating discharge is 33 minutes. Job ID: [id number]
== END 2018-01-18 15:23 | disposition home or self-care (01) | DRG 393 ==
LOC: ERS 06:09 → ERHOLD 10:25 → SURG B 13:43
PROVIDERS: ADMIT Internal Medicine Infectious Disease; ATTEND Internal Medicine Infectious Disease
PROC: 0W9G3ZX Drainage of Peritoneal Cavity, Percutaneous Approach, Diagnostic (ICD-10-PCS; principal; 2018-01-15)
DX: K91.89 Other postprocedural complications and disorders of digestive system (principal); K63.1 Perforation of intestine (nontraumatic); K65.9 Peritonitis, unspecified; E83.39 Other disorders of phosphorus metabolism; K21.9 Gastro-esophageal reflux disease without esophagitis; E87.6 Hypokalemia; I10 Essential (primary) hypertension; I48.2 Chronic atrial fibrillation; Z88.0 Allergy status to penicillin; Z90.49 Acquired absence of other specified parts of digestive tract
CPT/HCPCS: 36415; 49020; 74177; 77002; 80048; 80053; 82150; 83605; 83690; 83735; 84100; 85007; 85025; 85027; 87070; 87205; 96361; 96365; 96375; G8978-GP-CK; G8979-GP-CK; G8980-GP-CK; J2001; J2185; J2270; J2405; J3475; J3480; J7050; S0028

== ENCOUNTER 2018-01-30 10:18 | Outpatient (CLI) | payer MEDICARE ==
[~2018-01-30 10:18] MED LIST: Iopamidol 370 76% 100 ML VIAL ONE
[2018-01-30 12:54] LABS: Estimated GFR-MDRD - POC Greater than 90
--- NOTE | 2018-01-30 16:17 | CT ---
ABDOMEN AND PELVIC CT SCAN WITH IV CONTRAST: 01/30/18 HISTORY: 77-year-old female with history of abdominal pain. COMPARISON: 01/15/18. There are some linear stranding changes in both lungs with small residual pleural effusion showing i mprovement in the amount of pleural effusion and pleural based parenchymal changes when compared to t he prior study. There is a moderate amount of pneumobilia with air primarily within the left sided in trahepatic biliary tree. There is no evidence for pancreatic ductal dilatation. No pancreatic mass. T here does appear to be an accessory pancreatic duct draining into the duodenum with some pointing pancreatic tissue towards the duodenum at this level. There is a somewhat circumscribed minimal wa ll enhancing multilobulated and multiloculated fluid collection in the right lateral abdomen extendin g near the inferior edge of the pancreatic head down into the upper right pelvis, primarily in the ri ght lateral flank. This fluid collection now measures approximately 5.0 x 6.2 x 13 cm. It is slightly smaller than on the prior study of 01/15/18. The previously noted free cul-de-sac and free intraperit meza fluid has resolved. No evidence for bowel obstruction. No renal calculus or acute obstructio n. IMPRESSION: Persistent somewhat circumscribed minimal rim enhancing low attenuation lobulated and slightly locula christina fluid collection in the right lateral flank slightly smaller than on the prior study. Marked decr ease in the bilateral pleural effusions and bibasilar pulmonary parenchymal changes. Somewhat anomalo us appearing pancreatic head and neck with an accessory pancreatic duct draining in to the duodenum. POS: [facility]
== END 2018-01-30 10:19 | disposition home or self-care (01) ==
LOC: SCSCT 10:18
PROVIDERS: ATTEND Physician Assistant
DX: K63.1 Perforation of intestine (nontraumatic) (principal); J90 Pleural effusion, not elsewhere classified
CPT/HCPCS: 74177; 82565

== ENCOUNTER 2018-04-19 12:13 | Outpatient (CLI) | payer MEDICARE ==
--- NOTE | 2018-04-19 15:57 | MRI ---
MRI OF THE ABDOMEN WITHOUT AND WITH CONTRAST: COMPARISON: CT abdomen/pelvis 01/30/2018. HISTORY: Possible pancreatic abnormality seen on prior examination. Weight loss. Abdominal pain. TECHNIQUE: Multiplanar, multisequence MR images were obtained of the abdomen without and with IV contrast. FINDINGS: The gallbladder has been removed. No intrahepatic biliary dilatation is seen. The common bile duct is mildly enlarged measuring 7-8 mm. This is likely a reservoir effect from prior cholecystectomy. There is a tiny 2 mm focus of high T2 signal in the central liver seen on image 12 of 48 on the T2 im ages which likely represents a tiny hepatic cyst. The drainage of the pancreatic duct is through an accessory ampulla and the pancreatic duct does not joint with the common bile duct. This is similar to the finding seen on CT. No pancreatic mass is s een and no other pancreatic abnormality is present. There is a nonenhancing cyst in the right kidney measuring 1.1 cm in size. The adrenal glands, left kidney, and spleen are unremarkable. No abdominal adenopathy is seen. No abnormal enhancement is seen on this examination. No marrow sig nal abnormality is present. IMPRESSION: 1. Tiny hepatic cyst. 2. Right renal cyst. 3. The pancreas appears to drain into the duodenum due to an accessory pancreatic duct of Santorini. There is does not appear to be communication of the pancreatic duct and common bile duct. There is no evidence of annular pancreas. POS: [facility]
== END 2018-04-19 12:14 | disposition home or self-care (01) ==
LOC: SCSMRI 12:13
PROVIDERS: ATTEND Internal Medicine Gastroenterology
DX: K85.90 Acute pancreatitis without necrosis or infection, unspecified (principal); K83.1 Obstruction of bile duct; R63.4 Abnormal weight loss; K76.89 Other specified diseases of liver; N28.1 Cyst of kidney, acquired
CPT/HCPCS: 74183; 82565